=== PATIENT | male | born 1945 | race Caucasian/White ===

== ENCOUNTER 2019-12-01 17:03 | Inpatient (IN) ==
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
--- NOTE | 2019-12-01 17:37 | XRay Report ---
XR chest 1V portable CLINICAL HISTORY: fall trauma. Pain. COMPARISON STUDY: No previous studies for comparison. FINDINGS: The bones soft tissues and hemidiaphragms are normal. The cardiomediastinal silhouette is n ormal. The lungs are clear. The pulmonary vasculature is normal. IMPRESSION: Negative chest. ACT 112: Negative or not required by law. The above report was generated using voice recognition software. It may contain grammatical, syntax or spelling errors. Electronically signed by: Mauricio Forman M.D. 12/01/2019 5:36 PM
[2019-12-01 18:04] LABS: Basophils # (auto) 0.03 K/uL (0-0.2); Basophils % (auto) 0.2 %; Eosinophils # (auto) 0.04 K/uL (0-0.5); Eosinophils % (auto) 0.3 %; Hematocrit (blood only) 44.4 % (42-52); Hemoglobin 15.7 g/dL (14.0-18.0); Immature Granulocytes # (auto) 0.06 K/uL (0.00-0.02); Immature Granulocytes % (auto) 0.4 %; Lymphocytes # (auto) 2.46 K/uL (1.2-3.4); Lymphocytes % (auto) 16.6 %; Mean Corpuscular Hemoglobin 33.3 pg (25-34); Mean Corpuscular Hgb Conc 35.4 g/dL (32-36); Mean Corpuscular Volume 94.1 fL (80-100); Mean Platelet Volume 9.3 fL (7.4-10.4); Monocytes # (auto) 1.27 K/uL (0.11-0.59); Monocytes % (auto) 8.6 %; Neutrophils # (auto) 10.92 K/uL (1.4-6.5); Neutrophils % (auto) 73.9 %; Platelet Count 255 K/uL (130-400); RDW Coefficient of Variation 12.4 % (11.5-14.5); RDW Standard Deviation 42.2 fL (36.4-46.3); Red Blood Count 4.72 M/uL (4.7-6.1); White Blood Count 14.78 K/uL (4.8-10.8)
--- NOTE | 2019-12-01 18:04 | CT Scan Report ---
CT head/brain wo con CT DOSE: HISTORY: Trauma fall TECHNIQUE: Multiaxial CT images of the head were performed without the use of intravenous contrast. A dose lowering technique was utilized adhering to the principles of ALARA. Comparison: 09/26/2015 Findings: The paranasal sinuses and mastoid air cells are clear. Moderate chronic hydrocephalus.. Thi s is unchanged from the prior study again potentially is in part compensatory and related to age-rela genet atrophy. 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 No evidence for parenchymal hemorrhage. Impression: 1. Chronic and age-related change. 2. No acute process. ACT 112: Negative or not required by law. The above report was generated using voice recognition software. It may contain grammatical, syntax or spelling errors. Electronically signed by: Mauricio Forman M.D. 12/01/2019 6:02 PM
--- NOTE | 2019-12-01 18:11 | CT Scan Report ---
CT cervical spine wo con CT DOSE: 1040.95 mGy.cm HISTORY: Trauma. Pain. fall TECHNIQUE: Multiaxial CT images of the cervical spine were performed and reformatted in the sagittal and coronal plane without the use of contrast. A dose lowering technique was utilized adhering to th e principles of ALARA. COMPARISON: None. FINDINGS: No fractures. No subluxation. Prevertebral soft tissues and the C1-C2 interval are intact. No pneumothorax. Moderate generalized degenerative disc changes throughout. Straightening of the cerv ical curvature. IMPRESSION: No fractures within the cervical spine. Moderate degenerative disc change. Muscle spasm. ACT 112: Negative or not required by law. The above report was generated using voice recognition software. It may contain grammatical, syntax or spelling errors. Electronically signed by: Mauricio Forman M.D. 12/01/2019 6:10 PM
[2019-12-01 18:23] LABS: Albumin Level 3.8 gm/dl (3.4-5.0); BUN Creatinine Ratio 16.6 (10-20); Calcium 8.8 mg/dl (8.5-10.1); Creatinine Clr Calc Pharmacy 60.8 ml/min; Est GFR (African American) 84.7; Est GFR (Non-African American) 73.1; Potassium 3.4 mmol/L (3.5-5.1)
[2019-12-01 18:27] LABS: Acetaminophen < 2 ug/ml (10-30); Salicylate < 1.7 mg/dl (2.8-20)
[2019-12-01 18:34] LABS: Bilirubin,Total 0.8 mg/dl (0.2-1); Globulin 3.8 gm/dl (2.5-4.0); Thyroid Stimulating Hormone 1.42 uIu/ml (0.300-4.500); Total Protein 7.6 gm/dl (6.4-8.2)
[2019-12-01 18:59] LABS: Appearance Urine Clear (Clear); Bilirubin Urine Negative (Negative); Blood Urine Negative (Negative); Color Urine Dark Yellow; Glucose Urine UA Negative (Negative); Ketones Urine Trace (Negative); Leukocyte Esterase Urine Negative (Negative); Nitrite Urine Negative (Negative); Protein Urine Negative (Negative); Specific Gravity Urine 1.024 (1.000-1.030); Urobilinogen Urine Negative (Negative)
[2019-12-01 19:16] LABS: Amphetamines+Metham, Urine Neg (Neg); Barbiturates, Urine Neg (Neg); Benzodiazepine, Urine Neg (Neg); Cocaine, Urine Neg (Neg); MDMA (Ecstacy), Urine Neg (Neg); Methadone, Urine Neg (Neg); Opiate, Urine Neg (Neg); Phencyclidine, Urine Neg (Neg)
[2019-12-01] MEDS ORDERED: ACETAMINOPHEN 325 MG TAB PO PRN (22:12)
[2019-12-01] MEDS ORDERED: ONDANSETRON INJ 2 MG/ML 2 ML VIAL IV PRN (22:12)
[2019-12-01] MEDS ORDERED: POLYETHYLENE (MIRALAX) 17 GM PACK PO PRN (22:12)
[2019-12-01] MEDS ORDERED: INFLUENZA ADMINISTRATION CHARGE ONE (22:44)
[2019-12-01] MEDS ORDERED: INFLUENZA VACCINE HIGH DOSE 65+ 0.5 ML SYR IM ONE (22:44)
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
[2019-12-02 05:07] LABS: Basophils # (auto) 0.05 K/uL (0-0.2); Basophils % (auto) 0.4 %; Eosinophils % (auto) 0.8 %; Hematocrit (blood only) 41.5 % (42-52); Hemoglobin 14.3 g/dL (14.0-18.0); Immature Granulocytes # (auto) 0.05 K/uL (0.00-0.02); Immature Granulocytes % (auto) 0.4 %; Lymphocytes % (auto) 18.5 %; Mean Corpuscular Hemoglobin 32.4 pg (25-34); Mean Corpuscular Hgb Conc 34.5 g/dL (32-36); Mean Corpuscular Volume 94.1 fL (80-100); Mean Platelet Volume 9.3 fL (7.4-10.4); Monocytes # (auto) 1.45 K/uL (0.11-0.59); Monocytes % (auto) 11.2 %; Neutrophils # (auto) 8.95 K/uL (1.4-6.5); Neutrophils % (auto) 68.7 %; Platelet Count 214 K/uL (130-400); RDW Coefficient of Variation 12.5 % (11.5-14.5); RDW Standard Deviation 42.8 fL (36.4-46.3); Red Blood Count 4.41 M/uL (4.7-6.1)
[2019-12-02 05:38] LABS: BUN Creatinine Ratio 17.7 (10-20); Calcium 8.4 mg/dl (8.5-10.1); Creatinine Clr Calc Pharmacy 83.8 ml/min; Est GFR (African American) 106.8; Est GFR (Non-African American) 92.2; Potassium 3.6 mmol/L (3.5-5.1)
[2019-12-02] MEDS: DONEPEZIL HCL 5 MG TAB PO SCH (09:14)
[2019-12-02] MEDS: ATORVASTATIN 20 MG TAB PO SCH (09:14)
[2019-12-02] MEDS: ESCITALOPRAM OXALATE 20 MG TAB PO SCH (09:14)
--- NOTE | 2019-12-02 10:30 | Hospitalist Progress Note ---
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 Under care of neurosurgery at [place] MRI did not show any significant change compared with that of MRI 4 years back Remains stable DVT prophylaxis SCDs for now CODE STATUS Full Admission and Anticipated Discharge Date Admission Date: December 01, 2019 Subjective The patient was seen and examined in the medical floor Is a 74-year-old male with significant past medical history of postconcussion syndrome, dementia and major depression was admitted yesterday with frequent falls He complains to have fever last night without any associated symptoms of cough, problem with urine and her bowel habit Denies any other symptoms this morning Review of Systems Review of Systems: All systems reviewed and are unremarkable except noted below Gastrointestinal: + bloating; no nausea and no vomiting Physical Exam Physical Exam: Sitting at the edge of the bed without any acute symptoms Constitutional: well developed and well nourished; not ill appearing Eyes: PERRL, conjunctivae normal, anicteric sclerae ENMT: external ear and nose normal, oropharynx normal Neck: trachea midline, no thyromegaly Respiratory: normal respiratory effort; no respiratory distress Auscultation: lungs clear to auscultation bilaterally Cardiovascular: Rate/Rhythm: regular rate and regular rhythm; not tachycardic Heart Sounds: no murmur Gastrointestinal (Abdomen): Inspection/Auscultation: + abdomen distended and normal bowel sounds Percussion/Palpation: abdomen soft; abdomen nontender Musculoskeletal: No acute arthritis in any joints Neurologic: moves all extremities; no focal motor deficits Lymphatic: no cervical or axillary lymphadenopathy Results & Data Results & Data ([facility]) Vital Signs (Past 12 Hours) Vital Signs Temp Pulse Resp BP Pulse Ox 12/02/19 09:11 37.1 C 12/02/19 07:21 37.7 C H 63 18 132/85 96 12/01/19 23:47 37.1 C 70 20 123/84 97 Laboratory Results Short CBC 04/17/20 04/18/20 Range/Units 17:46 04:51 WBC 14.78 H 13.00 H (4.8-10.8) K/uL Hgb 15.7 14.3 (14.0-18.0) g/dL Hct 44.4 41.5 L (42-52) % Plt Count 255 214 (130-400) K/uL BMP 12/01/19 12/02/19 17:46 04:51 Sodium 138 136 Potassium 3.4 L 3.6 Chloride 107 108 H Carbon Dioxide 24 23 BUN 17 13 Creatinine 1.02 0.74 Glucose 149 H 114 H Calcium 8.8 8.4 L Liver Function 12/01/19 Range/Units 17:46 Total Bilirubin 0.8 (0.2-1) mg/dl AST 26 (15-37) U/L ALT 53 (12-78) U/L Alkaline Phosphatase 86 (45-117) U/L Albumin 3.8 (3.4-5.0) gm/dl Urine 12/01/19 Range/Units 18:50 Urine Color Dark Yellow Urine Appearance Clear (Clear) Urine pH 5.0 (4.5-7.5) Ur Specific [place] 1.024 (1.000-1.030) Urine Protein Negative (Negative) Urine Glucose (UA) Negative (Negative) Medications Administered Current Inpatient Medications Acetaminophen (Tylenol) 650 mg PO Q4H PRN PRN Reason: pain/fever Stop: 12/31/19 22:11 Atorvastatin Calcium (Lipitor) 20 mg PO DAILY [facility] Stop: 01/01/20 08:59 Last Admin: 12/02/19 09:14 Dose: 20 mg Documented by: Donepezil HCl (Aricept) 5 mg PO DAILY [facility] Stop: 01/01/20 08:59 Last Admin: 12/02/19 09:14 Dose: 5 mg Documented by: Escitalopram Oxalate (Lexapro Tab) 20 mg PO DAILY [facility] Stop: 01/01/20 08:59 Last Admin: 12/02/19 09:14 Dose: 20 mg Documented by: Ondansetron HCl (Zofran) 4 mg IV Q6H PRN PRN Reason: Nausea Stop: 12/31/19 22:11 Polyethylene Glycol (Miralax Powder Packet) 17 gm PO DAILY PRN PRN Reason: Constipation Stop: 12/31/19 22:11 (1) Fall Encounter type: initial encounter Qualified Code(s): W19.XXXA - Unspecified fall, initial encounter (2) Dementia Dementia behavioral disturbance: without behavioral disturbance Dementia type: unspecified type Qualified Code(s): F03.90 - Unspecified dementia without behavioral disturbance
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
--- NOTE | 2019-12-02 13:33 | Electrocardiogram Report ---
Test Reason : Blood Pressure : / mmHG Vent. Rate : 064 BPM Atrial Rate : 064 BPM P-R Int : 194 ms QRS Dur : 104 ms QT Int : 418 ms P-R-T Axes : 055 -17 051 degrees QTc Int : 431 ms Normal sinus rhythm Incomplete right bundle branch block Septal infarct , age undetermined Abnormal ECG No previous ECGs available Confirmed by Florentin Edwards ([id number]) on 12/02/2019 1:33:09 PM Referred By: REFERRED SELF Confirmed By:Florentin Edwards
[2019-12-03] MEDS: ATORVASTATIN 20 MG TAB PO SCH (09:28)
[2019-12-03] MEDS: ESCITALOPRAM OXALATE 20 MG TAB PO SCH (09:28)
[2019-12-03] MEDS: DONEPEZIL HCL 5 MG TAB PO SCH (09:29)
--- NOTE | 2019-12-03 11:25 | Hospitalist Progress Note ---
Date of Service December 03, 2019 Assessment & Plan (1) Fall: He was noted to be outside his home and was wondering about to get some food Lives alone Has been falling repeatedly recently without any significant injury or loss of consciousness He was brought into the hospital by the police Remains stable as of this morning PT and OT have been requested and social service consulted for possible placement (2) Dementia: Has history of dementia No acute delirium this morning Has mild depression on top of dementia Appreciate psychiatrist input and recommendation No suicidal and/or homicidal ideation Case management to evaluate for possible placement (3) HTN (hypertension): Seems to be controlled (4) Normal pressure hydrocephalus: Has history of normal pressure hydrocephalus Under care of neurosurgery at [place] MRI did not show any significant change compared with that of MRI 4 years back Remains stable DVT prophylaxis SCDs for now CODE STATUS Full Admission and Anticipated Discharge Date Admission Date: December 03, 2019 Subjective The patient was seen and examined in the medical floor Is a 74-year-old male with significant past medical history of postconcussion syndrome, dementia and major depression was admitted yesterday with frequent falls He complains to have fever last night without any associated symptoms of cough, problem with urine and her bowel habit Denies any other symptoms this morning 12/03/2019 The patient was seen and examined in medical floor He remains stable without any complaints He has been eating and drinking normally and ambulating in the room Review of Systems Review of Systems: All systems reviewed and are unremarkable except noted below Gastrointestinal: no bloating, no nausea and no vomiting Physical Exam Physical Exam: Sitting at the edge of the bed without any acute symptoms Constitutional: well developed and well nourished; not ill appearing Eyes: PERRL, conjunctivae normal, anicteric sclerae ENMT: external ear and nose normal, oropharynx normal Neck: trachea midline, no thyromegaly Respiratory: normal respiratory effort; no respiratory distress Auscultation: lungs clear to auscultation bilaterally Cardiovascular: Rate/Rhythm: regular rate and regular rhythm; not tachycardic Heart Sounds: no murmur Gastrointestinal (Abdomen): Inspection/Auscultation: + abdomen distended and normal bowel sounds Percussion/Palpation: abdomen soft; abdomen nontender Neurologic: moves all extremities; no focal motor deficits Lymphatic: no cervical or axillary lymphadenopathy Results & Data Results & Data ([facility]) Vital Signs (Past 12 Hours) Vital Signs Temp Pulse Resp BP Pulse Ox 04/19/20 07:05 36.9 C 65 18 136/80 96 12/02/19 23:32 36.8 C 54 L 16 136/84 93 Medications Administered Current Inpatient Medications Acetaminophen (Tylenol) 650 mg PO Q4H PRN PRN Reason: pain/fever Stop: 12/31/19 22:11 Atorvastatin Calcium (Lipitor) 20 mg PO DAILY [facility] Stop: 01/01/20 08:59 Last Admin: 12/03/19 09:28 Dose: 20 mg Documented by: Donepezil HCl (Aricept) 5 mg PO DAILY [facility] Stop: 01/01/20 08:59 Last Admin: 12/03/19 09:29 Dose: 5 mg Documented by: Escitalopram Oxalate (Lexapro Tab) 20 mg PO DAILY [facility] Stop: 01/01/20 08:59 Last Admin: 12/03/19 09:28 Dose: 20 mg Documented by: Ondansetron HCl (Zofran) 4 mg IV Q6H PRN PRN Reason: Nausea Stop: 12/31/19 22:11 Polyethylene Glycol (Miralax Powder Packet) 17 gm PO DAILY PRN PRN Reason: Constipation Stop: 12/31/19 22:11 (1) Fall Encounter type: initial encounter Qualified Code(s): W19.XXXA - Unspecified fall, initial encounter (2) Dementia Dementia behavioral disturbance: without behavioral disturbance Dementia type: unspecified type Qualified Code(s): F03.90 - Unspecified dementia without behavioral disturbance
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
== END 2019-12-03 13:07 | DRG 884 ==
LOC: 3E 17:03 → ED 17:03 → 3E 21:48

== ENCOUNTER 2021-06-17 13:57 | Inpatient (IN) ==
[2021-06-17] MEDS ORDERED: SODIUM CHLORIDE 0.9% 1000ML 1,000 ML IV ONE ×2 (14:08→14:10)
[2021-06-17] MEDS ORDERED: cefTRIAXone SODIUM 1,000 MG/50 ML BAG IV STA (14:08)
--- NOTE | 2021-06-17 14:13 | Emergency Department Note ---
Impression & Plan Sepsis, Pneumonia, Leukocytosis, Elevated lactic acid level ED Provider Note NAME: DOROTA JIMENEZ AGE: 75 SEX: M : 1945 ARRIVES VIA: Ambulance INFORMANT: Patient ED PROVIDER(S): Karthikeyan Cordova DO CHIEF COMPLAINT: cough and congestion HPI: Patient is a 75-year-old male with a past medical history of dementia, hypertension, alcohol abuse and NPH who presents to the ER for worsening confusion from [facility] as well as fevers cough and congestion. His symptoms started this past Wednesday. He denies any headache or change in vision. No chest pain or shortness of breath. He denies any belly pain or any urinary symptoms. History is fairly limited. Majority of history is obtained from EMS per their report. ROS: See above HPI for pertinent positives & negatives. A total of 10 systems reviewed and were otherwise negative. PAST MEDICAL HISTORY:See Below PAST SURGICAL HISTORY:See Below FAMILY HISTORY:See Below SOCIAL HISTORY:See Below HOME MEDICATIONS:See Below ALLERGIES:See Below VITALS:See Below PHYSICAL EXAMINATION: GENERAL: Sitting up in bed, alert, ill-appearing, disheveled with a persistent cough EYE EXAM: Normal conjunctiva with green purulent drainage on the left eye OROPHARYNX: no exudate, no erythema, lips, buccal mucosa, and tongue normal and mucous membranes are moist NECK: supple, no nuchal rigidity, no adenopathy, non-tender LUNGS: Clear to auscultation. Normal chest wall mechanics HEART: no murmurs, S1 normal and S2 normal ABDOMEN: abdomen soft, non-tender, normo-active bowel sounds, no masses, no rebound or guarding. UPPER EXTREMITIES: upper extremities are grossly normal. LOWER EXTREMITIES: No pitting edema. NEURO EXAM: Awake alert following commands, cranial nerves II-XII grossly intact, normal speech, no gross weakness of arms, no gross weakness of legs. MEDICAL DECISION MAKING: Patient is a 75-year-old male who presents the ER upper respiratory symptoms. IV was established blood work was obtained. Labs show leukocytosis 17,000. Lactate was elevated in the twos. No anemia. INR unremarkable. BMP with mild hypokalemia 3.4. LFTs bilirubin and troponin was negative. Pro-Jesus 0.26. Covid was negative. Chest x-ray with bilateral infiltrates. Patient was given IV fluids, azithromycin and Rocephin. Updated bedside. Discussed with hospitalist admitted for sepsis as he was febrile with an elevated lactate, leukocytosis for pneumonia. Triage Nursing notes reviewed. Limited review of prior medical records performed Vital Signs: reviewed and remarkable for fever Differential diagnosis: Differential diagnoses includes but is not limited to pneumonia, bronchitis, COPD/Asthma exacerbation, pneumothorax, pulmonary embolism, congestive heart failure, acute coronary syndrome ER treatment provided: See below Diagnostics interpreted by me: ECG: Sinus rhythm rate of 95 PVCs Inferior Q waves Septal Q waves QTC 417 Cardiac Monitoring: An order was placed for continuous cardiac monitoring. The monitor shows a rate of 92 with sinus rhythm. Laboratory studies: As stated above and show below. Imaging studies: Chest x-ray shows bilateral infiltrates Consultation(s): Discussed with hospitalist for further evaluation Procedures: none Critical Care: None Past Med/Surg History Social History Smoking Status: Unknown if ever smoked Tobacco Type: Cigars Hx Substance Use: No Preferred Language: Romansh Communication Ability: Effective Workers Compensation Analyst Required: No Beliefs That Will Affect Care: None marital status: Single Current Living Situation: Alone Feels Safe at Home: Yes Assistive Devices: Glasses Allergies Allergies Allergy/AdvReac Type Severity Reaction Status Date / Time No Known Allergies Allergy Verified 06/17/21 15:12 Home Meds Home Medications Medication Instructions Recorded Confirmed atorvastatin 20 mg tablet 20 mg PO QAM 12/01/19 06/17/21 escitalopram oxalate 20 mg tablet 20 mg PO QAM 12/01/19 06/17/21 (Lexapro) furosemide 20 mg tablet (Lasix) 20 mg PO QAM 12/01/19 06/17/21 carbidopa 25 mg-levodopa 100 mg 1 tab PO TIDM 06/17/21 06/17/21 tablet donepezil 10 mg tablet 10 mg PO QAM 06/17/21 06/17/21 guaifenesin 600 mg tablet, 600 mg PO Q12H PRN 06/17/21 06/17/21 extended release 12 hr (Mucus Relief ER) polyethylene glycol 3350 17 17 g PO Q3D PRN 06/17/21 06/17/21 gram/dose oral powder (Miralax) Results & Data (ED) Vital Signs Vital Signs - 24 hr 06/17/21 14:09 06/17/21 14:16 06/17/21 15:00 Temperature 38.0 C H Temperature Source Oral Pulse Rate 82 Pulse Rate [Right Finger] 74 Respiratory Rate 21 20 Respiratory Effort / Characteristics Non-Labored Respiratory Depth Normal Blood Pressure 140/87 Blood Pressure [Right Arm] 122/69 Blood Pressure Mean 104 Blood Pressure Mean [Right Arm] 86 Blood Pressure Position [Right Arm] Pulse Oximetry 93 93 Oxygen Delivery Method Room Air Room Air Nasal Cannula Oxygen Flow Rate 3 Sepsis Recent Fever Within 48 Hours Yes Sepsis New/Unexplained Change in Mental Status Yes Sepsis Action Taken by Nursing Physician Notified 06/17/21 15:04 06/17/21 16:00 06/17/21 16:12 Temperature Temperature Source Pulse Rate Pulse Rate [Right Finger] 82 Respiratory Rate 18 20 Respiratory Effort / Characteristics Respiratory Depth Normal Blood Pressure Blood Pressure [Right Arm] 118/74 117/97 Blood Pressure Mean Blood Pressure Mean [Right Arm] 88 103 Blood Pressure Position [Right Arm] Lying Pulse Oximetry 90 92 94 Oxygen Delivery Method Room Air Nasal Cannula Nasal Cannula Oxygen Flow Rate 3 3 Sepsis Recent Fever Within 48 Hours Sepsis New/Unexplained Change in Mental Status Sepsis Action Taken by Nursing 06/17/21 16:40 06/17/21 17:56 Temperature 37.9 C H Temperature Source Oral Pulse Rate Pulse Rate [Right Finger] 78 79 Respiratory Rate 20 20 Respiratory Effort / Characteristics Respiratory Depth Normal Normal Blood Pressure Blood Pressure [Right Arm] 121/62 144/72 H Blood Pressure Mean Blood Pressure Mean [Right Arm] 81 96 Blood Pressure Position [Right Arm] Lying Lying Pulse Oximetry 93 94 Oxygen Delivery Method Nasal Cannula Nasal Cannula Oxygen Flow Rate 3 3 Sepsis Recent Fever Within 48 Hours Sepsis New/Unexplained Change in Mental Status Sepsis Action Taken by Nursing Laboratory Data Result diagrams: 06/17/21 14:30 06/17/21 14:30 Lab Results 06/17/21 06/17/21 06/17/21 Range/Units 14:30 14:30 14:30 WBC 17.76 H (4.8-10.8) K/uL RBC 4.38 L (4.7-6.1) M/uL Hgb 14.3 (14.0-18.0) g/dL Hct 41.0 L (42-52) % MCV 93.6 (80-100) fL MCH 32.6 (25-34) pg MCHC 34.9 (32-36) g/dL RDW Std Deviation 43.2 (36.4-46.3) fL RDW Coeff of Vikas 12.6 (11.5-14.5) % Plt Count 351 (130-400) K/uL MPV 9.2 (7.4-10.4) fL Immature Gran % (Auto) 0.5 % Neut % (Auto) 75.6 % Lymph % (Auto) 11.0 % [place] % (Auto) 12.6 % Eos % (Auto) 0.1 % Baso % (Auto) 0.2 % Neut # (Auto) 13.43 H (1.4-6.5) K/uL Lymph # (Auto) 1.96 (1.2-3.4) K/uL [place] # (Auto) 2.23 H (0.11-0.59) K/uL Eos # (Auto) 0.02 (0-0.5) K/uL Baso # (Auto) 0.03 (0-0.2) K/uL Immature Gran # (Auto) 0.09 H (0.00-0.02) K/uL PT 10.5 (9.0-12.0) Seconds INR 1.0 (0.9-1.1) APTT 31.9 H (21.0-31.0) Seconds PTT Ratio 1.2 Sodium 135 L (136-145) mmol/L Potassium 3.4 L (3.5-5.1) mmol/L Chloride 103 (98-107) mmol/L Carbon Dioxide 27 (21-32) mmol/L Anion Gap 5.0 (3-11) BUN 18 (7-18) mg/dl Creatinine 0.88 (0.6-1.4) mg/dl Est Cr Clr Drug Dosing Not Reportable Est GFR ( Amer) 98.8 ml/min Est GFR (Non-Af Amer) 85.2 ml/min BUN/Creatinine Ratio 20.1 H (10-20) Glucose 139 H (70-99) mg/dl Lactate (0.4-2.0) mmol/L Calcium 9.2 (8.5-10.1) mg/dl Magnesium 2.2 (1.8-2.4) mg/dl Total Bilirubin 1.0 (0.2-1) mg/dl AST 32 (15-37) U/L ALT 17 (12-78) U/L Alkaline Phosphatase 125 H (45-117) U/L Troponin I < 0.015 (0-0.045) ng/ml Total Protein 7.4 (6.4-8.2) gm/dl Albumin 2.9 L (3.4-5.0) gm/dl Globulin 4.5 H (2.5-4.0) gm/dl Albumin/Globulin Ratio 0.6 L (0.9-2) Procalcitonin (0-0.5) ng/ml COVID-19 Eval Order SARS-CoV-2 (PCR) (Negative) 06/17/21 06/17/21 06/17/21 Range/Units 14:30 14:30 17:08 WBC (4.8-10.8) K/uL RBC (4.7-6.1) M/uL Hgb (14.0-18.0) g/dL Hct (42-52) % MCV (80-100) fL MCH (25-34) pg MCHC (32-36) g/dL RDW Std Deviation (36.4-46.3) fL RDW Coeff of Vikas (11.5-14.5) % Plt Count (130-400) K/uL MPV (7.4-10.4) fL Immature Gran % (Auto) % Neut % (Auto) % Lymph % (Auto) % [place] % (Auto) % Eos % (Auto) % Baso % (Auto) % Neut # (Auto) (1.4-6.5) K/uL Lymph # (Auto) (1.2-3.4) K/uL [place] # (Auto) (0.11-0.59) K/uL Eos # (Auto) (0-0.5) K/uL Baso # (Auto) (0-0.2) K/uL Immature Gran # (Auto) (0.00-0.02) K/uL PT (9.0-12.0) Seconds INR (0.9-1.1) APTT (21.0-31.0) Seconds PTT Ratio Sodium (136-145) mmol/L Potassium (3.5-5.1) mmol/L Chloride (98-107) mmol/L Carbon Dioxide (21-32) mmol/L Anion Gap (3-11) BUN (7-18) mg/dl Creatinine (0.6-1.4) mg/dl Est Cr Clr Drug Dosing Est GFR ( Amer) ml/min Est GFR (Non-Af Amer) ml/min BUN/Creatinine Ratio (10-20) Glucose (70-99) mg/dl Lactate 2.4 H* 1.0 (0.4-2.0) mmol/L Calcium (8.5-10.1) mg/dl Magnesium (1.8-2.4) mg/dl Total Bilirubin (0.2-1) mg/dl AST (15-37) U/L ALT (12-78) U/L Alkaline Phosphatase (45-117) U/L Troponin I (0-0.045) ng/ml Total Protein (6.4-8.2) gm/dl Albumin (3.4-5.0) gm/dl Globulin (2.5-4.0) gm/dl Albumin/Globulin Ratio (0.9-2) Procalcitonin 0.26 (0-0.5) ng/ml COVID-19 Eval Order SARS-CoV-2 (PCR) (Negative) 06/17/21 06/17/21 Range/Units Unknown Unknown WBC (4.8-10.8) K/uL RBC (4.7-6.1) M/uL Hgb (14.0-18.0) g/dL Hct (42-52) % MCV (80-100) fL MCH (25-34) pg MCHC (32-36) g/dL RDW Std Deviation (36.4-46.3) fL RDW Coeff of Vikas (11.5-14.5) % Plt Count (130-400) K/uL MPV (7.4-10.4) fL Immature Gran % (Auto) % Neut % (Auto) % Lymph % (Auto) % [place] % (Auto) % Eos % (Auto) % Baso % (Auto) % Neut # (Auto) (1.4-6.5) K/uL Lymph # (Auto) (1.2-3.4) K/uL [place] # (Auto) (0.11-0.59) K/uL Eos # (Auto) (0-0.5) K/uL Baso # (Auto) (0-0.2) K/uL Immature Gran # (Auto) (0.00-0.02) K/uL PT (9.0-12.0) Seconds INR (0.9-1.1) APTT (21.0-31.0) Seconds PTT Ratio Sodium (136-145) mmol/L Potassium (3.5-5.1) mmol/L Chloride (98-107) mmol/L Carbon Dioxide (21-32) mmol/L Anion Gap (3-11) BUN (7-18) mg/dl Creatinine (0.6-1.4) mg/dl Est Cr Clr Drug Dosing Est GFR ( Amer) ml/min Est GFR (Non-Af Amer) ml/min BUN/Creatinine Ratio (10-20) Glucose (70-99) mg/dl Lactate (0.4-2.0) mmol/L Calcium (8.5-10.1) mg/dl Magnesium (1.8-2.4) mg/dl Total Bilirubin (0.2-1) mg/dl AST (15-37) U/L ALT (12-78) U/L Alkaline Phosphatase (45-117) U/L Troponin I (0-0.045) ng/ml Total Protein (6.4-8.2) gm/dl Albumin (3.4-5.0) gm/dl Globulin (2.5-4.0) gm/dl Albumin/Globulin Ratio (0.9-2) Procalcitonin (0-0.5) ng/ml COVID-19 Eval Order Covid19 at [facility] SARS-CoV-2 (PCR) NEGATIVE (Negative) Administered Medications Discontinued Medications Acetaminophen (Acetaminophen 500 Mg Tab) 1,000 mg PO NOW STA Stop: 06/17/21 18:00 Last Admin: 06/17/21 18:15 Dose: 1,000 mg Documented by: [id number] Sodium Chloride (Nss 1000ml) 1,000 mls @ 999 mls/hr IV .Q1H1M ONE Stop: 06/17/21 15:08 Last Infusion: 06/17/21 18:05 Dose: 0 mls/hr Documented by: [id number] Admin: 06/17/21 15:21 Dose: 999 mls/hr Documented by: [id number] Ceftriaxone Sodium (Rocephin) 1,000 mg in 50 mls @ 100 mls/hr IV NOW STA Stop: 06/17/21 14:37 Last Infusion: 06/17/21 16:14 Dose: 0 mls/hr Documented by: [id number] Admin: 06/17/21 15:21 Dose: 100 mls/hr Documented by: [id number] Sodium Chloride (Nss 1000ml) 1,000 mls @ 999 mls/hr IV .Q1H1M ONE Stop: 06/17/21 15:10 Last Infusion: 06/17/21 18:06 Dose: 0 mls/hr Documented by: [id number] Admin: 06/17/21 16:17 Dose: 999 mls/hr Documented by: [id number] Azithromycin 500 mg/ Dextrose 255 mls @ 127.5 mls/hr IV NOW STA Stop: 06/17/21 18:11 Last Admin: 06/17/21 16:38 Dose: 127.5 mls/hr Documented by: [id number] Imaging Data Radiologist's Impression: Chest X-Ray 06/17/21 14:08 XR chest 1V portable HISTORY: 75 years-old Male SEPSIS acute sepsis COMPARISON: Chest radiograph 12/01/2019 TECHNIQUE: Portable AP view of the chest FINDINGS: Cardiac silhouette is mildly enlarged. Mild bibasilar opacities with hypoinflation. No pneumothorax, pleural effusion or overt pulmonary edema. Degenerative changes of the shoulders and spine. IMPRESSION: Hypoinflation with mild bibasilar densities suggestive of atelectasis versus pneumonitis. ACT 112: Negative or not required by law. The above report was generated using voice recognition software. It may contain grammatical, syntax or spelling errors. Electronically signed by: Dm Boyer M.D. 06/17/2021 3:04 PM Discharge Plan Visit Data Chief Complaint: Illness Stated Complaint: cough fever ED Provider: Karthikeyan Cordova Discharge Problem: Sepsis, Pneumonia, Leukocytosis, Elevated lactic acid level Forms Stand Alone Forms: My [facility] [employer] Prescriptions Prescriptions: No Action atorvastatin 20 mg Tablet 20 mg PO QAM RF: 0 furosemide [Lasix] 20 mg Tablet 20 mg PO QAM RF: 0 escitalopram oxalate [Lexapro] 20 mg Tablet 20 mg PO QAM RF: 0 carbidopa-levodopa 25-100 mg tablet 1 tab PO TIDM RF: 0 donepezil 10 mg tablet 10 mg PO QAM RF: 0 polyethylene glycol 3350 [Miralax] 17 gram/dose Powder 17 g PO Q3D PRN (Reason: Constipation) RF: 0 guaifenesin [Mucus Relief ER] 600 mg Tablet Extended Release 12hr 600 mg PO Q12H PRN (Reason: Congestion) RF: 0 Referrals Referrals: Pradeep Rodriguez DO [Primary Care Provider] - Discharge Problem: Sepsis Qualifiers: Sepsis type: sepsis due to unspecified organism Sepsis acute organ dysfunction status: unspecified Qualified Code(s): A41.9 - Sepsis, unspecified organism Pneumonia Qualifiers: Pneumonia type: due to unspecified organism Laterality: unspecified laterality Lung location: unspecified part of lung Qualified Code(s): J18.9 - Pneumonia, unspecified organism Leukocytosis Qualifiers: Leukocytosis type: unspecified Qualified Code(s): D72.829 - Elevated white blood cell count, unspecified
[2021-06-17 14:50] LABS: Basophils # (auto) 0.03 K/uL (0-0.2); Basophils % (auto) 0.2 %; Eosinophils # (auto) 0.02 K/uL (0-0.5); Eosinophils % (auto) 0.1 %; Hemoglobin 14.3 g/dL (14.0-18.0); Immature Granulocytes # (auto) 0.09 K/uL (0.00-0.02); Immature Granulocytes % (auto) 0.5 %; Lymphocytes # (auto) 1.96 K/uL (1.2-3.4); Mean Corpuscular Hemoglobin 32.6 pg (25-34); Mean Corpuscular Hgb Conc 34.9 g/dL (32-36); Mean Corpuscular Volume 93.6 fL (80-100); Mean Platelet Volume 9.2 fL (7.4-10.4); Monocytes # (auto) 2.23 K/uL (0.11-0.59); Monocytes % (auto) 12.6 %; Neutrophils # (auto) 13.43 K/uL (1.4-6.5); Neutrophils % (auto) 75.6 %; Platelet Count 351 K/uL (130-400); RDW Coefficient of Variation 12.6 % (11.5-14.5); RDW Standard Deviation 43.2 fL (36.4-46.3); Red Blood Count 4.38 M/uL (4.7-6.1); White Blood Count 17.76 K/uL (4.8-10.8)
--- NOTE | 2021-06-17 15:05 | XRay Report ---
XR chest 1V portable HISTORY: 75 years-old Male SEPSIS acute sepsis COMPARISON: Chest radiograph 12/01/2019 TECHNIQUE: Portable AP view of the chest FINDINGS: Cardiac silhouette is mildly enlarged. Mild bibasilar opacities with hypoinflation. No pneumothorax, pleural effusion or overt pulmonary edema. Degenerative changes of the shoulders and spine. IMPRESSION: Hypoinflation with mild bibasilar densities suggestive of atelectasis versus pneumonitis. ACT 112: Negative or not required by law. The above report was generated using voice recognition software. It may contain grammatical, syntax o r spelling errors. Electronically signed by: Dm Boyer M.D. 06/17/2021 3:04 PM
[2021-06-17 15:10] LABS: Partial Thromboplastin Ratio 1.2; Partial Thromboplastin Time 31.9 Seconds (21.0-31.0); Prothrombin Time 10.5 Seconds (9.0-12.0)
[2021-06-17 15:19] LABS: Alanine Aminotransferase 17 U/L (12-78); Albumin Level 2.9 gm/dl (3.4-5.0); Aspartate Aminotransferase 32 U/L (15-37); BUN Creatinine Ratio 20.1 (10-20); Blood Urea Nitrogen 18 mg/dl (7-18); Calcium 9.2 mg/dl (8.5-10.1); Carbon Dioxide 27 mmol/L (21-32); Chloride 103 mmol/L (98-107); Est GFR (African American) 98.8 ml/min; Est GFR (Non-African American) 85.2 ml/min; Glucose 139 mg/dl (70-99); Magnesium 2.2 mg/dl (1.8-2.4); Potassium 3.4 mmol/L (3.5-5.1); Sodium 135 mmol/L (136-145)
[2021-06-17 15:24] LABS: Albumin Globulin Ratio 0.6 (0.9-2); Alkaline Phosphatase 125 U/L (45-117); Globulin 4.5 gm/dl (2.5-4.0); Total Protein 7.4 gm/dl (6.4-8.2); Troponin I < 0.015 ng/ml (0-0.045)
[2021-06-17] MEDS ORDERED: AZITHROMYCIN 500 MG in DEXTROSE 5% 250 ML IV STA (16:12)
--- NOTE | 2021-06-17 16:38 | History & Physical Report ---
Date of Service June 17, 2021 Assessment & Plan (1) Sepsis: (2) Pneumonia: Plan: This is a 75yo M who resides at [facility] with a PMH of TBI, recent diagnosis of Parkinson's, HTN, h/o alcohol abuse, MDD and other medical problems listed below who presents with generalized weakness and cough x4 days found to have sepsis in setting of PNA. Cough and congestion x 3 days, saturating 92% on 3L NC (not on home O2) Febrile at 38 C, leukocytosis of 17.76, procal wnl, initial lactate 2.4 -> repeat 1.2 CXR with hypoinflation with mild bibasilar densities suggestive of atelectasis versus pneumonitis Started on rocephin and azithromycin in ED - plan to continue. Follow cultures Duonebs, flutter valve, Tessalon Perles PRN, Mucinex BID (3) Acute metabolic encephalopathy: Plan: In setting of acute infection, patient currently A&Ox1. Expect improvement with abx therapy, hydration (4) History of traumatic brain injury: Plan: History of severe TBI as a teen with some cognitive delay. Usually A&O x2 per sister. Continue donepezil (5) Bacterial conjunctivitis of left eye: Plan: Unclear how long this has been present, +photophobia Cleanse eyelids, Cipro drops (6) Parkinson's disease: Plan: Recent diagnosis within the past 6 months Fall precautions in setting of ambulatory dysfunction, PT/OT Continue carbidopa-levodopa (7) HTN (hypertension): Plan: Normotensive. Hold lasix while receiving fluid resuscitation (8) Depression: Plan: Continue Lexapro DVT Ppx: SQ Lovenox Code status: FULL code per discussion with sister Valerie for now - she plans to discuss further with other sister, nephew, discussed benefit of establishing a POA PCP: Tatiana Rodriguez Dispo: Admitted to PCU Patient seen in collaboration with Dr. Macdonald. Please see addendum. History of Present Illness Chief Complaint: confusion, cough, fevers Primary Care Provider: Pradeep Rodriguez, This is a 75yo M who resides at [facility] with a PMH of TBI, recent diagnosis of Parkinson's, HTN, h/o alcohol abuse, MDD and other medical problems listed below who presents with generalized weakness and cough x4 days. Noted by nursing to be congested with cough over the past few days. Oxygen saturation 93 to 95% on room air. Outpatient Covid test negative. Directed to ED for further evaluation of symptoms. Patient is currently alert and oriented to self only, which is different than baseline per discussion with Sister Valerie on the phone. Patient with history of TBI as a teen and as well as a diagnosis of Parkinson's disease within the past 6 months. Patient is normally oriented to person and place and knows his family members when he speaking on the phone. Is slow to answer questions and does seem to have less interest in decision making over the past few years, per sister. Unable to obtain ROS due to cognitive status. Unable to reach [facility] this evening. Allergies Allergy/AdvReac Type Severity Reaction Status Date / Time No Known Allergies Allergy Verified 06/17/21 15:12 Home Medications Medication Instructions Recorded Confirmed Type atorvastatin 20 mg tablet 20 mg PO QAM 12/01/19 06/17/21 History escitalopram oxalate 20 mg tablet 20 mg PO QAM 12/01/19 06/17/21 History (Lexapro) furosemide 20 mg tablet (Lasix) 20 mg PO QAM 12/01/19 06/17/21 History carbidopa 25 mg-levodopa 100 mg 1 tab PO TIDM 06/17/21 06/17/21 History tablet donepezil 10 mg tablet 10 mg PO QAM 06/17/21 06/17/21 History guaifenesin 600 mg tablet, 600 mg PO Q12H PRN 06/17/21 06/17/21 History extended release 12 hr (Mucus Relief ER) polyethylene glycol 3350 17 17 g PO Q3D PRN 06/17/21 06/17/21 History gram/dose oral powder (Miralax) Past Med/Surg History Medical History (Updated 06/17/21 @ 20:41 by Anamaria Schreiber PA-C) Depression History of traumatic brain injury HLD (hyperlipidemia) HTN (hypertension) Normal pressure hydrocephalus Parkinson's disease Surgical History Hx of colonoscopy Family History Other Diabetes Heart disease Social History (Updated 06/17/21 @ 20:32 by Anamaria Schreiber PA-C) Smoking Status: Unknown if ever smoked Tobacco Type: Cigars Hx Alcohol Use: No (former alcohol use ) Hx Substance Use: No Preferred Language: Surinamese Communication Ability: Impaired Communication Tools: Other Hadoop Software Engineer Required: Yes Beliefs That Will Affect Care: None marital status: Single Current Living Situation: [facility] Other Information That Helps Us Care for You: Yes Feels Safe at Home: Yes Safety Concerns: Feels Safe At This Time Assistive Devices: Walker Review of Systems Review of Systems: Unobtainable due to cognitive status Physical Exam Physical Exam: General Appearance: WD/WN, vitals as above, NAD, sitting up in bed, minimal verbal responses, alert Head: normocephalic, atraumatic Eyes: + injected sclera L eye with photophobia, purulent drainage noted. PERRL. ENT: external ear and nose normal, oropharynx normal Neck: normal visual inspection, trachea midline, no thyromegaly Respiratory: normal respiratory effort, diffuse rhonchi on exam, no wheeze or rales. No accessory muscle use Cardiovascular: regular rate, rhythm, no murmur, normal peripheral pulses, no BLE edema. Vessels: no JVD Chest: normal inspection of chest Abdomen/GI: normal bowel sounds, soft, nontender, no hepatosplenomegaly Extremities/Musculoskeletal: no cyanosis or clubbing, extremities motor strength 5/5 Neurologic: PERRL, EOMI, accommodation nl, no face palsy, no dysarthria, CN's II-XI intact bilaterally and moves all extremities Psychiatric: A+Ox person only, answered some questions Skin: no rashes, normal color, warm/dry Results & Data Results & Data ([facility]) Vital Signs (Past 12 Hours) Vital Signs Temp Pulse Pulse Resp BP BP Pulse Ox 06/17/21 16:12 94 06/17/21 16:00 82 20 117/97 92 06/17/21 15:04 18 118/74 90 06/17/21 15:00 74 20 122/69 93 06/17/21 14:09 38.0 C H 82 21 140/87 93 Laboratory Results Short CBC 06/17/21 Range/Units 14:30 WBC 17.76 H (4.8-10.8) K/uL Hgb 14.3 (14.0-18.0) g/dL Hct 41.0 L (42-52) % Plt Count 351 (130-400) K/uL BMP 06/17/21 14:30 Sodium 135 L Potassium 3.4 L Chloride 103 Carbon Dioxide 27 BUN 18 Creatinine 0.88 Glucose 139 H Calcium 9.2 Cardiac Enzymes 06/17/21 Range/Units 14:30 Troponin I < 0.015 (0-0.045) ng/ml Liver Function 06/17/21 Range/Units 14:30 Total Bilirubin 1.0 (0.2-1) mg/dl AST 32 (15-37) U/L ALT 17 (12-78) U/L Alkaline Phosphatase 125 H (45-117) U/L Albumin 2.9 L (3.4-5.0) gm/dl Diagnostic Findings Chest X-Ray 06/17/21 14:08 XR chest 1V portable HISTORY: 75 years-old Male SEPSIS acute sepsis COMPARISON: Chest radiograph 12/01/2019 TECHNIQUE: Portable AP view of the chest FINDINGS: Cardiac silhouette is mildly enlarged. Mild bibasilar opacities with hypoinflation. No pneumothorax, pleural effusion or overt pulmonary edema. Degenerative changes of the shoulders and spine. IMPRESSION: Hypoinflation with mild bibasilar densities suggestive of atelectasis versus pneumonitis. ACT 112: Negative or not required by law. The above report was generated using voice recognition software. It may contain grammatical, syntax or spelling errors. Electronically signed by: Dm Boyer M.D. 06/17/2021 3:04 PM Supervising Physician Co-Signing Physician Notes Pt seen and examined by me, care coordinated with Anamaria Schreiber PA-C, pls refer to her note above for further detail. Pt is a 75yo M who resides at [facility] w/ hx of TBI, recent diagnosis of Parkinson's, HTN, h/o alcohol abuse, MDD who presents with generalized weakness and cough x4 days. Oxygen saturation 93 to 95% on room air. Outpatient Covid test negative. Patient is currently alert and oriented to self only, which is different from baseline. Patient with history of TBI as a teen and as well as a diagnosis of Parkinson's disease within the past 6 months. Patient is normally oriented to person and place and knows his family members when he speaking on the phone. He is currently quite slow to answer questions but does not seem to be in discomfort and only complains of cough and congestion. Unable to obtain ROS due to cognitive status. Heart sounds seem reglar. Lung sounds: + diffuse rhonchi, no wheezing noted. Abdomen soft, non tender, nondistended. Pt is moving extremities. No significant LE edema noted. Skin is warm dry. L eye conjuctivitis + purulent drainage. Started on rocephin and azithro, will continue. Flutter valve, guaifenesin. obtain sputum cultx if possible. Closely monitor. Cesar Macdonald MD (1) Sepsis Sepsis acute organ dysfunction status: unspecified Sepsis type: sepsis due to unspecified organism Qualified Code(s): A41.9 - Sepsis, unspecified organism (2) Pneumonia Laterality: unspecified laterality Lung location: unspecified part of lung Pneumonia type: due to unspecified organism Qualified Code(s): J18.9 - Pneumonia, unspecified organism
--- NOTE | 2021-06-17 16:42 | Electrocardiogram Report ---
Test Reason : Blood Pressure : / mmHG Vent. Rate : 095 BPM Atrial Rate : 080 BPM P-R Int : 176 ms QRS Dur : 094 ms QT Int : 332 ms P-R-T Axes : 047 -25 051 degrees QTc Int : 417 ms Sinus rhythm with frequent Premature ventricular complexes Otherwise normal ECG When compared with ECG of 02-DEC-2019 06:43, Premature ventricular complexes are now Present Vent. rate has increased BY 31 BPM Confirmed by Jose Armando Phan ([id number]) on 06/17/2021 4:42:03 PM Referred By: REFERRED SELF Confirmed By:Cristofer Phan
[2021-06-17] MEDS ORDERED: ACETAMINOPHEN 500 MG TAB PO STA (17:59)
[2021-06-17] MEDS ORDERED: cefTRIAXone SODIUM 1,000 MG in DEXTROSE 5% 50 ML IV SCH (19:15)
[2021-06-17] MEDS ORDERED: BENZONATATE 100 MG CAPSULE PO PRN (20:43)
[2021-06-17] MEDS ORDERED: POLYETHYLENE (MIRALAX) 17 GM PACK PO PRN (20:43)
[2021-06-17] MEDS ORDERED: ACETAMINOPHEN 325 MG TAB PO PRN (20:43)
[2021-06-17] MEDS ORDERED: ONDANSETRON INJ 2 MG/ML 2 ML VIAL IV PRN (20:43)
[2021-06-17] MEDS ORDERED: guaiFENesin 600 MG TABCR PO PRN (20:54)
[2021-06-17] MEDS: ALBUT/IPRATROP 3MG/0.5MG NEB 3 ML VIAL NEB SCH (21:27)
[2021-06-17] MEDS ORDERED: cefTRIAXone SODIUM 2000MG/70ML D5W IV ONE (22:28)
[2021-06-17] MEDS: CIPROFLOXACIN HCL 0.3% OP SOLN 2.5 ML BTL OPL SCH (22:40)
[2021-06-17] MEDS: ENOXAPARIN INJ 40 MG/0.4 ML SYR SQ SCH (22:40)
[2021-06-17] MEDS: cefTRIAXone SODIUM 2,000 MG in DEXTROSE 5% 50 ML IV SCH (22:43)
[2021-06-18 06:02] LABS: Hematocrit (blood only) 37.8 % (42-52); Hemoglobin 12.8 g/dL (14.0-18.0); Mean Corpuscular Hemoglobin 31.9 pg (25-34); Mean Corpuscular Hgb Conc 33.9 g/dL (32-36); Mean Corpuscular Volume 94.3 fL (80-100); Mean Platelet Volume 9.2 fL (7.4-10.4); Platelet Count 293 K/uL (130-400); RDW Coefficient of Variation 12.8 % (11.5-14.5); RDW Standard Deviation 44.4 fL (36.4-46.3); Red Blood Count 4.01 M/uL (4.7-6.1); White Blood Count 13.64 K/uL (4.8-10.8)
[2021-06-18] MEDS: ALBUT/IPRATROP 3MG/0.5MG NEB 3 ML VIAL NEB SCH (06:21)
[2021-06-18 06:33] LABS: BUN Creatinine Ratio 24.9 (10-20); Calcium 8.4 mg/dl (8.5-10.1); Creatinine Clr Calc Pharmacy 109.8 ml/min; Est GFR (African American) 118.9 ml/min; Est GFR (Non-African American) 102.6 ml/min; Potassium 3.3 mmol/L (3.5-5.1)
[2021-06-18] MEDS: CIPROFLOXACIN HCL 0.3% OP SOLN 2.5 ML BTL OPL SCH ×4 (08:54→21:46)
[2021-06-18] MEDS: CARBIDOPA/LEVODOPA 25/100MG TAB PO SCH ×3 (08:54→18:08)
[2021-06-18] MEDS: DONEPEZIL HCL 10 MG TAB PO SCH (08:54)
[2021-06-18] MEDS: ATORVASTATIN 20 MG TAB PO SCH (08:54)
[2021-06-18] MEDS: ESCITALOPRAM OXALATE 20 MG TAB PO SCH (08:54)
[2021-06-18] MEDS ORDERED: ALBUT/IPRATROP 3MG/0.5MG NEB 3 ML VIAL NEB PRN (10:18)
[2021-06-18] MEDS ORDERED: POTASSIUM CHLORIDE CRTAB 20 MEQ TABCR PO STA (10:37)
[2021-06-18] MEDS: AZITHROMYCIN 500 MG in DEXTROSE 5% 250 ML IV SCH (19:27)
--- NOTE | 2021-06-18 21:40 | Hospitalist Progress Note ---
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 #. Sepsis: #. Pneumonia: Cough and congestion x 3 days, saturating 92% on 3L NC (not on home O2) YARDER PUNCHER. At presentation: Febrile at 38 C, leukocytosis of 17.76, procal wnl, initial lactate 2.4 -> repeat 1.2 CXR with hypoinflation with mild bibasilar densities suggestive of atelectasis versus pneumonitis Continue with Rocephin and azithromycin 06/17. Patient improving. Duonebs, flutter valve, Tessalon Perles PRN, Mucinex BID #. Acute metabolic encephalopathy: In setting of acute infection, patient currently A&Ox2 which appears to be his baseline Resolved #. 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 Usually A&O x2 per sister. Continue donepezil #. Bacterial conjunctivitis of left eye: Unclear how long this has been present, +photophobia Cleanse eyelids, Cipro drops #. Parkinson's disease: Recent diagnosis within the past 6 months Fall precautions in setting of ambulatory dysfunction, PT/OT Continue carbidopa-levodopa #. HTN (hypertension): Normotensive. Will resume Lasix tomorrow #. Depression: Continue Lexapro DVT Ppx: SQ Lovenox Code status: FULL code per discussion with sister Valerie for now - she plans to discuss further with other sister, nephew, discussed benefit of establishing a POA PCP: Tatiana Rodriguez Dispo: Admitted to PCU PT/OT to [facility], expect discharge in next 1 to 2 days. Admission and Anticipated Discharge Date Admission Date: June 17, 2021 Subjective Patient was lying in bed, AO x2, NAD, on 2 L nasal cannula oxygen. Per RN no acute events overnight. He looks tired. Per RN he has improved from yesterday. Patient reports cough. Cannot spit out sputum. Patient does not report any headache/dizziness/chest pain/other review of symptoms. Physical Exam Physical Exam: GENERAL: Alert and oriented x2. NAD, on 2L. HEENT: No pallor, no icterus. Pupils equal, round and reactive to light. Oral mucosa moist. NECK: No JVD, no neck masses. HEART: S1 and S2 heard. Regular rate and rhythm. No murmur, no gallop. RESPIRATORY SYSTEM: Normal AP diameter. No accessory muscle use. No wheezing, crackles diffuse and bilateral ABDOMEN: Soft, bowel sounds present, nontender, no distention. CENTRAL NERVOUS SYSTEM: Alert and oriented x3. No facial droop. Speech is clear. Obeys simple commands. Moves extremities. EXTREMITIES: No edema, no erythema seen. Results & Data Results & Data ([facility]) Vital Signs (Past 12 Hours) Vital Signs Temp Pulse Resp BP Pulse Ox 06/18/21 20:00 36.9 C 78 16 121/78 95 06/18/21 12:00 37.1 C 81 22 130/81 94 (1) Sepsis Sepsis acute organ dysfunction status: unspecified Sepsis type: sepsis due to unspecified organism Qualified Code(s): A41.9 - Sepsis, unspecified organism (2) Pneumonia Laterality: unspecified laterality Lung location: unspecified part of lung Pneumonia type: due to unspecified organism Qualified Code(s): J18.9 - Pneumonia, unspecified organism
[2021-06-18] MEDS: cefTRIAXone SODIUM 2,000 MG in DEXTROSE 5% 50 ML IV SCH (21:46)
[2021-06-18] MEDS: ENOXAPARIN INJ 40 MG/0.4 ML SYR SQ SCH (21:46)
[2021-06-19 06:29] LABS: Hematocrit (blood only) 37.1 % (42-52); Hemoglobin 12.6 g/dL (14.0-18.0); Mean Corpuscular Hemoglobin 32.4 pg (25-34); Mean Corpuscular Volume 95.4 fL (80-100); Mean Platelet Volume 9.1 fL (7.4-10.4); Platelet Count 333 K/uL (130-400); RDW Standard Deviation 45.1 fL (36.4-46.3); Red Blood Count 3.89 M/uL (4.7-6.1); White Blood Count 14.11 K/uL (4.8-10.8)
[2021-06-19 06:57] LABS: BUN Creatinine Ratio 25.3 (10-20); Calcium 8.6 mg/dl (8.5-10.1); Creatinine Clr Calc Pharmacy 93.2 ml/min; Est GFR (African American) 111.2 ml/min; Est GFR (Non-African American) 95.9 ml/min; Magnesium 2.3 mg/dl (1.8-2.4); Potassium 3.7 mmol/L (3.5-5.1)
[2021-06-19] MEDS: ESCITALOPRAM OXALATE 20 MG TAB PO SCH (08:38)
[2021-06-19] MEDS: CARBIDOPA/LEVODOPA 25/100MG TAB PO SCH ×3 (08:38→15:42)
[2021-06-19] MEDS: ATORVASTATIN 20 MG TAB PO SCH (08:38)
[2021-06-19] MEDS: DONEPEZIL HCL 10 MG TAB PO SCH (08:38)
[2021-06-19] MEDS: CIPROFLOXACIN HCL 0.3% OP SOLN 2.5 ML BTL OPL SCH ×4 (08:39→20:28)
--- NOTE | 2021-06-19 16:58 | Hospitalist Progress Note ---
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 #. Sepsis: #. Pneumonia: Cough and congestion x 3 days, saturating 92% on 3L NC (not on home O2) MANAGER PSYCHOLOGY. At presentation: Febrile at 38 C, leukocytosis of 17.76, procal wnl, initial lactate 2.4 -> repeat 1.2 CXR with hypoinflation with mild bibasilar densities suggestive of atelectasis versus pneumonitis Sepsis resolved. Continue with Rocephin and azithromycin 06/17. Patient improving. Duonebs, flutter valve, Tessalon Perles PRN, Mucinex BID #. Acute metabolic encephalopathy: In setting of acute infection, patient currently A&Ox2 which appears to be his baseline Resolved #. 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 Usually A&O x2 per sister. Continue donepezil #. Bacterial conjunctivitis of left eye: Unclear how long this has been present, +photophobia Improving Cleanse eyelids, Cipro drops #. Parkinson's disease: Recent diagnosis within the past 6 months Fall precautions in setting of ambulatory dysfunction, PT/OT Continue carbidopa-levodopa #. HTN (hypertension): Fairly under control, resume Lasix. #. Depression: Continue Lexapro DVT Ppx: SQ Lovenox Code status: FULL code per discussion with sister Valerie for now - she plans to discuss further with other sister, nephew, discussed benefit of establishing a POA PCP: Tatiana Rodriguez Dispo: Admitted to PCU PT/OT recommends discharge back to [facility]. expect discharge in next 1 to 2 days. Admission and Anticipated Discharge Date Admission Date: June 17, 2021 Subjective Patient was lying in bed, AO x2, NAD, on 2 L nasal cannula oxygen. No acute events overnight per patient. He looks somewhat better than yesterday. Patient reports cough. Patient was coughing at the bedside, wet in nature. patient does not report any headache/dizziness/chest pain/other review of symptoms. Patient is eating and moving bowels okay. Physical Exam Physical Exam: GENERAL: Alert and oriented x2. NAD, on 2L. Patient coughing at the bedside. HEENT: No pallor, no icterus. Pupils equal, round and reactive to light. Oral mucosa moist. NECK: No JVD, no neck masses. HEART: S1 and S2 heard. Regular rate and rhythm. No murmur, no gallop. RESPIRATORY SYSTEM: Normal AP diameter. No accessory muscle use. No wheezing, crackles diffuse and bilateral ABDOMEN: Soft, bowel sounds present, nontender, no distention. CENTRAL NERVOUS SYSTEM: No facial droop. Speech is clear. Obeys simple commands. Moves extremities. EXTREMITIES: No edema, no erythema seen. Results & Data Results & Data ([facility]) Vital Signs (Past 12 Hours) Vital Signs Temp Pulse Pulse Resp BP Pulse Ox 06/19/21 16:31 59 L 06/19/21 14:50 36.8 C 70 16 150/84 H 96 06/19/21 11:26 36.7 C 75 22 155/74 H 91 06/19/21 07:14 36.7 C 64 18 153/83 H 96 (1) Sepsis Sepsis acute organ dysfunction status: unspecified Sepsis type: sepsis due to unspecified organism Qualified Code(s): A41.9 - Sepsis, unspecified organism (2) Pneumonia Laterality: unspecified laterality Lung location: unspecified part of lung Pneumonia type: due to unspecified organism Qualified Code(s): J18.9 - Pneumonia, unspecified organism
[2021-06-19] MEDS: FUROSEMIDE 20 MG TAB PO SCH (17:34)
[2021-06-19] MEDS: AZITHROMYCIN 500 MG in DEXTROSE 5% 250 ML IV SCH (20:28)
[2021-06-19] MEDS: BENZONATATE 100 MG CAPSULE PO SCH (20:29)
[2021-06-19] MEDS: ENOXAPARIN INJ 40 MG/0.4 ML SYR SQ SCH (21:43)
[2021-06-19] MEDS: cefTRIAXone SODIUM 2,000 MG in DEXTROSE 5% 50 ML IV SCH (22:54)
[2021-06-20 07:12] LABS: Hematocrit (blood only) 37.7 % (42-52); Hemoglobin 13.1 g/dL (14.0-18.0); Mean Corpuscular Hemoglobin 31.9 pg (25-34); Mean Corpuscular Hgb Conc 34.7 g/dL (32-36); Mean Corpuscular Volume 91.7 fL (80-100); Mean Platelet Volume 9.1 fL (7.4-10.4); Platelet Count 376 K/uL (130-400); RDW Coefficient of Variation 12.7 % (11.5-14.5); RDW Standard Deviation 43.1 fL (36.4-46.3); Red Blood Count 4.11 M/uL (4.7-6.1); White Blood Count 10.69 K/uL (4.8-10.8)
[2021-06-20 07:43] LABS: BUN Creatinine Ratio 24.9 (10-20); Calcium 8.6 mg/dl (8.5-10.1); Creatinine Clr Calc Pharmacy 111.8 ml/min; Est GFR (African American) 119.8 ml/min; Est GFR (Non-African American) 103.4 ml/min; Potassium 3.4 mmol/L (3.5-5.1)
[2021-06-20] MEDS: BENZONATATE 100 MG CAPSULE PO SCH ×3 (08:25→20:54)
[2021-06-20] MEDS: CARBIDOPA/LEVODOPA 25/100MG TAB PO SCH ×3 (08:25→16:56)
[2021-06-20] MEDS: FUROSEMIDE 20 MG TAB PO SCH (08:25)
[2021-06-20] MEDS: ATORVASTATIN 20 MG TAB PO SCH (08:25)
[2021-06-20] MEDS: ESCITALOPRAM OXALATE 20 MG TAB PO SCH (08:25)
[2021-06-20] MEDS: DONEPEZIL HCL 10 MG TAB PO SCH (08:25)
[2021-06-20] MEDS: CIPROFLOXACIN HCL 0.3% OP SOLN 2.5 ML BTL OPL SCH ×4 (08:26→20:52)
[2021-06-20] MEDS ORDERED: POTASSIUM CHLORIDE CRTAB 20 MEQ TABCR PO STA (09:10)
--- NOTE | 2021-06-20 09:20 | XRay Report ---
XR chest 1V portable CLINICAL HISTORY: Follow-up possible pneumonia. Patient on antibiotics with continued fever.. 2020 COMPARISON STUDY: No previous studies for comparison. TECHNIQUE: 1 view of the chest FINDINGS: Single frontal view of the chest demonstrates the cardiomediastinal silhouette to be within normal li mits. Compared to the previous examination, there is an increased inspiratory effort with resolution of minimal bibasal atelectasis. No confluent alveolar opacities are identified. There is no evidence for pleural effusion. There is no evidence for vascular congestion. There is no acute osseous patholo gy. IMPRESSION: Compared to previous examination, there is a deeper inspiration with resolution of bibasi lar atelectasis. No confluent alveolar opacities are identified. Follow-up PA and lateral radiographs would be helpful for further evaluation. ACT 112: Negative or not required by law. Electronically signed by: Marc Soliz M.D. 06/20/2021 9:18 AM
[2021-06-20 10:35] LABS: Appearance Urine Clear (Clear); Bilirubin Urine Negative (Negative); Blood Urine Negative (Negative); Color Urine Yellow; Glucose Urine UA Negative (Negative); Ketones Urine 1+ (Negative); Leukocyte Esterase Urine Negative (Negative); Nitrite Urine Negative (Negative); Protein Urine Negative (Negative); Specific Gravity Urine 1.021 (1.000-1.030); Urobilinogen Urine Negative (Negative); pH Urine 6.5 (4.5-7.5)
--- NOTE | 2021-06-20 18:30 | Hospitalist Progress Note ---
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 #. Sepsis: #. Pneumonia: Cough and congestion x 3 days, saturating 92% on 3L NC (not on home O2) CONTENT STRATEGY LEAD. At presentation: Febrile at 38 C, leukocytosis of 17.76, procal wnl, initial lactate 2.4 -> repeat 1.2 CXR with hypoinflation with mild bibasilar densities suggestive of atelectasis versus pneumonitis Sepsis resolved. Continue with Rocephin and azithromycin 06/17. Patient improving. Duonebs, flutter valve, Tessalon Perles PRN, Mucinex BID Likely discharge tomorrow on oral antibiotics. #. Acute metabolic encephalopathy: In setting of acute infection, patient currently A&Ox2 which appears to be his baseline Resolved #. History of traumatic brain injury: History of severe TBI as a seen with some cognitive delay. Usually A&O x2 per sister. Continue donepezil #. Bacterial conjunctivitis of left eye: Unclear how long this has been present, +photophobia Improving Cleanse eyelids, Cipro drops #. Parkinson's disease: Recent diagnosis within the past 6 months Fall precautions in setting of ambulatory dysfunction, PT/OT Continue carbidopa-levodopa #. HTN (hypertension): Fairly under control, resume Lasix. #. Depression: Continue Lexapro DVT Ppx: SQ Lovenox Code status: FULL code per discussion with sister Valerie for now - she plans to discuss further with other sister, nephew, discussed benefit of establishing a POA PCP: Tatiana Rodriguez Dispo: Admitted to PCU PT/OT recommends discharge back to [facility]. expect discharge tomorrow if no new issues arises overnight . estimator project manager to help with discharge planning. Admission and Anticipated Discharge Date Admission Date: June 17, 2021 Subjective Patient was lying in bed, AO x2, NAD, on RA. No acute events overnight per patient. He reports feeling better and looks significantly better. Patient reports improving cough. No coughing noted at bedside today. Patient does not report any headache/dizziness/chest pain/other review of symptoms. Patient is eating and moving bowels okay. Physical Exam Physical Exam: GENERAL: Alert and oriented x2. NAD, on room air. No coughing at the bedside. HEENT: No pallor, no icterus. Pupils equal, round and reactive to light. Oral mucosa moist. NECK: No JVD, no neck masses. HEART: S1 and S2 heard. Regular rate and rhythm. No murmur, no gallop. RESPIRATORY SYSTEM: Normal AP diameter. No accessory muscle use. No wheezing, crackles diffuse and bilateralimproving ABDOMEN: Soft, bowel sounds present, nontender, no distention. CENTRAL NERVOUS SYSTEM: No facial droop. Speech is clear. Obeys simple commands. Moves extremities. EXTREMITIES: No edema, no erythema seen. Results & Data Results & Data ([facility]) Vital Signs (Past 12 Hours) Vital Signs Temp Pulse Pulse Resp BP BP Pulse Ox 06/20/21 16:30 63 06/20/21 15:58 37.3 C 67 16 166/87 H 92 06/20/21 12:20 37.0 C 64 16 132/84 91 06/20/21 08:33 36.8 C 64 20 133/80 92 06/20/21 07:24 57 L (1) Sepsis Sepsis acute organ dysfunction status: unspecified Sepsis type: sepsis due to unspecified organism Qualified Code(s): A41.9 - Sepsis, unspecified organism (2) Pneumonia Laterality: unspecified laterality Lung location: unspecified part of lung Pneumonia type: due to unspecified organism Qualified Code(s): J18.9 - Pneumonia, unspecified organism
[2021-06-20] MEDS: AZITHROMYCIN 500 MG in DEXTROSE 5% 250 ML IV SCH (20:51)
[2021-06-20] MEDS: ENOXAPARIN INJ 40 MG/0.4 ML SYR SQ SCH (20:52)
[2021-06-20] MEDS: cefTRIAXone SODIUM 2,000 MG in DEXTROSE 5% 50 ML IV SCH (22:55)
[2021-06-21 06:40] LABS: Hematocrit (blood only) 41.4 % (42-52); Hemoglobin 14.1 g/dL (14.0-18.0); Mean Corpuscular Hgb Conc 34.1 g/dL (32-36); Mean Corpuscular Volume 94.1 fL (80-100); Mean Platelet Volume 9.2 fL (7.4-10.4); Platelet Count 468 K/uL (130-400); RDW Coefficient of Variation 12.7 % (11.5-14.5); RDW Standard Deviation 43.2 fL (36.4-46.3); White Blood Count 14.03 K/uL (4.8-10.8)
[2021-06-21 07:25] LABS: BUN Creatinine Ratio 20.3 (10-20); Calcium 8.7 mg/dl (8.5-10.1); Creatinine Clr Calc Pharmacy 86.6 ml/min; Est GFR (African American) 107.9 ml/min; Est GFR (Non-African American) 93.1 ml/min; Magnesium 2.6 mg/dl (1.8-2.4); Potassium 4.2 mmol/L (3.5-5.1)
[2021-06-21] MEDS: BENZONATATE 100 MG CAPSULE PO SCH (08:15)
[2021-06-21] MEDS: ATORVASTATIN 20 MG TAB PO SCH (08:15)
[2021-06-21] MEDS: CIPROFLOXACIN HCL 0.3% OP SOLN 2.5 ML BTL OPL SCH ×4 (08:16→20:50)
[2021-06-21] MEDS: ESCITALOPRAM OXALATE 20 MG TAB PO SCH (08:16)
[2021-06-21] MEDS: CARBIDOPA/LEVODOPA 25/100MG TAB PO SCH ×3 (08:16→16:04)
[2021-06-21] MEDS: DONEPEZIL HCL 10 MG TAB PO SCH (08:16)
[2021-06-21] MEDS: FUROSEMIDE 20 MG TAB PO SCH (08:16)
[2021-06-21] MEDS ORDERED: PIPERACILL/TAZOBAC CONSULT ACTIVE PRN (08:28)
[2021-06-21] MEDS ORDERED: PIPERACILLIN/TAZOBACTAM 3.375 GM in DEXTROSE 5% 100 ML IV ONE (09:00)
--- NOTE | 2021-06-21 14:41 | Hospitalist Progress Note ---
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 #. Sepsis: #. Pneumonia: Cough and congestion x 3 days, saturating 92% on 3L NC (not on home O2) NEWSSTAND VENDOR. At presentation: Febrile at 38 C, leukocytosis of 17.76, procal wnl, initial lactate 2.4 -> repeat 1.2 Admitting CXR with hypoinflation with mild bibasilar densities suggestive of atelectasis versus pneumonitis Sepsis resolved. Patient is still febrile, WBC elevated today. Change Rocephin 06/17 to Zosyn 06/21 Continue with azithromycin 06/17. Procalcitonin not elevated, follow-up chest x-ray better. Duonebs, flutter valve, Tessalon Perles PRN, Mucinex BID Continue follow-up. #. Acute metabolic encephalopathy: In setting of acute infection, patient currently A&Ox2 which appears to be his baseline Resolved #. History of traumatic brain injury: History of severe TBI as a seen with some cognitive delay. Usually A&O x2 per sister. Continue donepezil #. Bacterial conjunctivitis of left eye: Unclear how long this has been present, +photophobia Improving Cleanse eyelids, Cipro drops #. Parkinson's disease: Recent diagnosis within the past 6 months Fall precautions in setting of ambulatory dysfunction, PT/OT Continue carbidopa-levodopa #. HTN (hypertension): Fairly under control, resume Lasix. #. Depression: Continue Lexapro DVT Ppx: SQ Lovenox Code status: FULL code per discussion with sister Valerie for now - she plans to discuss further with other sister, nephew, discussed benefit of establishing a POA PCP: Tatiana Rodriguez Dispo: Admitted to PCU PT/OT recommends discharge back to [facility]. expect discharge in 1-2 days . partnership marketing manager to help with discharge planning [[facility]] Admission and Anticipated Discharge Date Admission Date: June 17, 2021 Subjective Patient was lying in bed, AO x2, NAD, on RA. No acute events overnight per patient. He reports feeling same but looks not as better as yesterday to me. Patient reports improving cough. No coughing noted at bedside again today. Patient does not report any headache/dizziness/chest pain/other review of symptoms. Patient is eating and moving bowels okay. Physical Exam Physical Exam: GENERAL: Alert and oriented x2. NAD, on room air. No coughing at the bedside. HEENT: No pallor, no icterus. Pupils equal, round and reactive to light. Oral mucosa moist. NECK: No JVD, no neck masses. HEART: S1 and S2 heard. Regular rate and rhythm. No murmur, no gallop. RESPIRATORY SYSTEM: Normal AP diameter. No accessory muscle use. No wheezing, crackles diffuse and bilateralimproving ABDOMEN: Soft, bowel sounds present, nontender, no distention. CENTRAL NERVOUS SYSTEM: No facial droop. Speech is clear. Obeys simple commands. Moves extremities. EXTREMITIES: No edema, no erythema seen. Results & Data Results & Data ([facility]) Vital Signs (Past 12 Hours) Vital Signs Temp Pulse Pulse Resp BP Pulse Ox 06/21/21 11:48 36.7 C 63 20 156/79 H 93 06/21/21 08:30 57 L 06/21/21 05:54 37.2 C 61 14 151/68 H 93 06/21/21 04:07 36.9 C 60 17 120/76 95 (1) Sepsis Sepsis acute organ dysfunction status: unspecified Sepsis type: sepsis due to unspecified organism Qualified Code(s): A41.9 - Sepsis, unspecified organism (2) Pneumonia Laterality: unspecified laterality Lung location: unspecified part of lung Pneumonia type: due to unspecified organism Qualified Code(s): J18.9 - Pneumonia, unspecified organism
[2021-06-21] MEDS: PIPERACILLIN/TAZOBACTAM 3.375 GM in DEXTROSE 5% 100 ML IV SCH ×2 (16:03→23:57)
[2021-06-21] MEDS: AZITHROMYCIN 500 MG in DEXTROSE 5% 250 ML IV SCH (20:50)
[2021-06-21] MEDS: ENOXAPARIN INJ 40 MG/0.4 ML SYR SQ SCH (20:51)
[2021-06-22 06:56] LABS: Hemoglobin 13.7 g/dL (14.0-18.0); Mean Corpuscular Hgb Conc 34.3 g/dL (32-36); Mean Corpuscular Volume 93.5 fL (80-100); Platelet Count 461 K/uL (130-400); RDW Coefficient of Variation 12.7 % (11.5-14.5); Red Blood Count 4.28 M/uL (4.7-6.1); White Blood Count 11.38 K/uL (4.8-10.8)
[2021-06-22 07:25] LABS: Creatinine Clr Calc Pharmacy 102.5 ml/min; Est GFR (African American) 115.6 ml/min; Est GFR (Non-African American) 99.7 ml/min
[2021-06-22] MEDS: FUROSEMIDE 20 MG TAB PO SCH (08:44)
[2021-06-22] MEDS: CARBIDOPA/LEVODOPA 25/100MG TAB PO SCH ×3 (08:44→17:21)
[2021-06-22] MEDS: ATORVASTATIN 20 MG TAB PO SCH (08:45)
[2021-06-22] MEDS: ESCITALOPRAM OXALATE 20 MG TAB PO SCH (08:45)
[2021-06-22] MEDS: DONEPEZIL HCL 10 MG TAB PO SCH (08:45)
[2021-06-22] MEDS: CIPROFLOXACIN HCL 0.3% OP SOLN 2.5 ML BTL OPL SCH ×4 (08:45→21:04)
[2021-06-22] MEDS: PIPERACILLIN/TAZOBACTAM 3.375 GM in DEXTROSE 5% 100 ML IV SCH ×3 (08:51→23:50)
--- NOTE | 2021-06-22 14:50 | Hospitalist Progress Note ---
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 #. Sepsis: #. Pneumonia: Cough and congestion x 3 days, saturating 92% on 3L NC (not on home O2) CAR RETARDER OPERATOR. At presentation: Febrile at 38 C, leukocytosis of 17.76, procal wnl, initial lactate 2.4 -> repeat 1.2 Admitting CXR with hypoinflation with mild bibasilar densities suggestive of atelectasis versus pneumonitis Sepsis resolved. Patient is afebrile since yesterday, WBC trending down. Continue with Rocephin 06/17--> Zosyn 06/21 Continue with azithromycin 06/17. Procalcitonin not elevated, follow-up chest x-ray better. Duonebs, flutter valve, Tessalon Perles PRN, Mucinex BID Continue follow-up. #. Acute metabolic encephalopathy: In setting of acute infection, patient currently A&Ox2 which appears to be his baseline Resolved #. History of traumatic brain injury: History of severe TBI as a seen with some cognitive delay. Usually A&O x2 per sister. Continue donepezil #. Bacterial conjunctivitis of left eye: Unclear how long this has been present, +photophobia Improving Cleanse eyelids, Cipro drops #. Parkinson's disease: Recent diagnosis within the past 6 months Fall precautions in setting of ambulatory dysfunction, PT/OT Continue carbidopa-levodopa #. HTN (hypertension): Fairly under control, resume Lasix. #. Depression: Continue Lexapro DVT Ppx: SQ Lovenox Code status: FULL code per discussion with sister Valerie for now - she plans to discuss further with other sister, nephew, discussed benefit of establishing a POA PCP: Tatiana Rodriguez Dispo: Admitted to PCU PT/OT recommends discharge back to [facility]. expect discharge in 1-2 days . manager talent acquisition to help with discharge planning [[facility]]. Admission and Anticipated Discharge Date Admission Date: June 17, 2021 Subjective Patient was lying semiupright in bed, AO x2, NAD, on RA. Per RN, patient was found on floor overnight and did not hit his head; and no imaging was deemed necessary overnight by manager ccu per RN. Per patient, he does not remember falling overnight. Per RN he is eating and moving bowels okay. Patient reports improving cough, occasional wet appearing cough at bedside. Patient does not report any headache/dizziness/chest pain/other review of symptoms. Patient is eating and moving bowels okay. Physical Exam Physical Exam: GENERAL: Alert and oriented x2. NAD, on room air. Occasional wet coughing at the bedside. HEENT: No pallor, no icterus. Pupils equal, round and reactive to light. Oral mucosa moist. NECK: No JVD, no neck masses. HEART: S1 and S2 heard. Regular rate and rhythm. No murmur, no gallop. RESPIRATORY SYSTEM: Normal AP diameter. No accessory muscle use. No wheezing, crackles diffuse and bilateralimproving ABDOMEN: Soft, bowel sounds present, nontender, no distention. CENTRAL NERVOUS SYSTEM: No facial droop. Speech is clear. Obeys simple commands. Moves extremities. EXTREMITIES: No edema, no erythema seen. Results & Data Results & Data ([facility]) Vital Signs (Past 12 Hours) Vital Signs Temp Pulse Pulse Resp BP BP Pulse Ox 06/22/21 12:12 36.6 C 63 18 125/77 93 06/22/21 09:59 56 L 06/22/21 07:14 36.5 C 73 16 134/87 94 06/22/21 03:41 36.8 C 61 18 126/77 95 (1) Sepsis Sepsis acute organ dysfunction status: unspecified Sepsis type: sepsis due to unspecified organism Qualified Code(s): A41.9 - Sepsis, unspecified organism (2) Pneumonia Laterality: unspecified laterality Lung location: unspecified part of lung Pneumonia type: due to unspecified organism Qualified Code(s): J18.9 - Pneumonia, unspecified organism
[2021-06-22] MEDS: AZITHROMYCIN 500 MG in DEXTROSE 5% 250 ML IV SCH (21:04)
[2021-06-22] MEDS: ENOXAPARIN INJ 40 MG/0.4 ML SYR SQ SCH (21:05)
[2021-06-23 06:52] LABS: Hematocrit (blood only) 40.9 % (42-52); Hemoglobin 13.8 g/dL (14.0-18.0); Mean Corpuscular Hemoglobin 31.9 pg (25-34); Mean Corpuscular Hgb Conc 33.7 g/dL (32-36); Mean Corpuscular Volume 94.5 fL (80-100); Mean Platelet Volume 9.1 fL (7.4-10.4); Platelet Count 465 K/uL (130-400); RDW Coefficient of Variation 12.6 % (11.5-14.5); RDW Standard Deviation 43.6 fL (36.4-46.3); Red Blood Count 4.33 M/uL (4.7-6.1); White Blood Count 12.27 K/uL (4.8-10.8)
[2021-06-23 07:34] LABS: Est GFR (African American) 105.5 ml/min
[2021-06-23] MEDS: CARBIDOPA/LEVODOPA 25/100MG TAB PO SCH ×3 (08:06→16:25)
[2021-06-23] MEDS: ATORVASTATIN 20 MG TAB PO SCH (08:06)
[2021-06-23] MEDS: CIPROFLOXACIN HCL 0.3% OP SOLN 2.5 ML BTL OPL SCH ×4 (08:06→20:49)
[2021-06-23] MEDS: DONEPEZIL HCL 10 MG TAB PO SCH (08:07)
[2021-06-23] MEDS: FUROSEMIDE 20 MG TAB PO SCH (08:07)
[2021-06-23] MEDS: ESCITALOPRAM OXALATE 20 MG TAB PO SCH (08:07)
[2021-06-23] MEDS: PIPERACILLIN/TAZOBACTAM 3.375 GM in DEXTROSE 5% 100 ML IV SCH ×2 (08:17→16:25)
--- NOTE | 2021-06-23 11:57 | Hospitalist Progress Note ---
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 #. Sepsis: #. Pneumonia: Cough and congestion x 3 days, saturating 92% on 3L NC (not on home O2) STUDIO ENGINEER. At presentation: Febrile at 38 C, leukocytosis of 17.76, procal wnl, initial lactate 2.4 -> repeat 1.2 Admitting CXR with hypoinflation with mild bibasilar densities suggestive of atelectasis versus pneumonitis Sepsis resolved. Patient is afebrile since last today, WBC trending stable [WBC appears to be mildly elevated looking at past records). Continue with Rocephin 06/17--> Zosyn 06/21 --> changed to Augmentin tomorrow 06/24 Will complete course of azithromycin today 06/23. Repeat procalcitonin not elevated, follow-up chest x-ray has been better. Duonebs, flutter valve, Tessalon Perles PRN, Mucinex BID Continue follow-up. #. Acute metabolic encephalopathy: In setting of acute infection, patient currently A&Ox2 which appears to be his baseline Resolved #. History of traumatic brain injury: History of severe TBI as a seen with some cognitive delay. Usually A&O x2 per sister. Continue donepezil #. Bacterial conjunctivitis of left eye: Unclear how long this has been present, +photophobia Improving Cleanse eyelids, Cipro drops #. Parkinson's disease: Recent diagnosis within the past 6 months Fall precautions in setting of ambulatory dysfunction, PT/OT Continue carbidopa-levodopa #. HTN (hypertension): Fairly under control, resume Lasix. #. Depression: Continue Lexapro DVT Ppx: SQ Lovenox Code status: FULL code per discussion with sister Valerie for now - she plans to discuss further with other sister, nephew, discussed benefit of establishing a POA PCP: Tatiana Rodriguez Dispo: Admitted to PCU PT/OT recommends discharge back to [facility]. Medically stable t o discharge. aquatic centre manager to help with discharge planning [[facility]]. Admission and Anticipated Discharge Date Admission Date: June 17, 2021 Subjective Patient was lying in bed, AO x2, NAD, on RA. Patient looks better today, reports no acute events overnight. He reports eating and moving bowels okay. No cough noted at bedside exam today. Patient does not report any headache/dizziness/chest pain/other review of symptoms. Physical Exam Physical Exam: GENERAL: Alert and oriented x2. NAD, on room air. No cough noted at bedside exam. HEENT: No pallor, no icterus. Pupils equal, round and reactive to light. Oral mucosa moist. NECK: No JVD, no neck masses. HEART: S1 and S2 heard. Regular rate and rhythm. No murmur, no gallop. RESPIRATORY SYSTEM: Normal AP diameter. No accessory muscle use. No wheezing, crackles diffuse and bilateralimproving ABDOMEN: Soft, bowel sounds present, nontender, no distention. CENTRAL NERVOUS SYSTEM: No facial droop. Speech is clear. Obeys simple commands. Moves extremities. EXTREMITIES: No edema, no erythema seen. Results & Data Results & Data ([facility]) Vital Signs (Past 12 Hours) Vital Signs Temp Pulse Pulse Resp BP Pulse Ox 06/23/21 05:55 36.7 C 58 L 16 126/80 94 06/23/21 00:00 36.7 C 60 63 16 122/77 93 (1) Sepsis Sepsis acute organ dysfunction status: unspecified Sepsis type: sepsis due to unspecified organism Qualified Code(s): A41.9 - Sepsis, unspecified organism (2) Pneumonia Laterality: unspecified laterality Lung location: unspecified part of lung Pneumonia type: due to unspecified organism Qualified Code(s): J18.9 - Pneumonia, unspecified organism
[2021-06-23] MEDS: ENOXAPARIN INJ 40 MG/0.4 ML SYR SQ SCH (20:49)
[2021-06-24] MEDS: PIPERACILLIN/TAZOBACTAM 3.375 GM in DEXTROSE 5% 100 ML IV SCH ×2 (00:50→09:11)
[2021-06-24 06:32] LABS: Hematocrit (blood only) 40.9 % (42-52); Mean Corpuscular Hemoglobin 32.3 pg (25-34); Mean Corpuscular Hgb Conc 34.2 g/dL (32-36); Mean Corpuscular Volume 94.2 fL (80-100); Mean Platelet Volume 8.7 fL (7.4-10.4); Platelet Count 469 K/uL (130-400); RDW Coefficient of Variation 12.6 % (11.5-14.5); RDW Standard Deviation 43.4 fL (36.4-46.3); Red Blood Count 4.34 M/uL (4.7-6.1); White Blood Count 11.78 K/uL (4.8-10.8)
[2021-06-24 07:01] LABS: Creatinine Clr Calc Pharmacy 72.4 ml/min; Est GFR (African American) 100.2 ml/min; Est GFR (Non-African American) 86.4 ml/min
[2021-06-24] MEDS: CARBIDOPA/LEVODOPA 25/100MG TAB PO SCH ×3 (09:12→17:25)
[2021-06-24] MEDS: FUROSEMIDE 20 MG TAB PO SCH (09:12)
[2021-06-24] MEDS: CIPROFLOXACIN HCL 0.3% OP SOLN 2.5 ML BTL OPL SCH ×4 (09:12→20:37)
[2021-06-24] MEDS: ESCITALOPRAM OXALATE 20 MG TAB PO SCH (09:12)
[2021-06-24] MEDS: DONEPEZIL HCL 10 MG TAB PO SCH (09:12)
[2021-06-24] MEDS: ATORVASTATIN 20 MG TAB PO SCH (13:21)
--- NOTE | 2021-06-24 14:15 | Hospitalist Progress Note ---
Date of Service June 24, 2021 Assessment & Plan (1) Sepsis: (2) Pneumonia: (3) Acute metabolic encephalopathy: (4) Bacterial conjunctivitis of left eye: Plan: 75yo M who resides at [facility] with a PMH of TBI, recent diagnosis of Parkinson's, HTN, h/o alcohol abuse, MDD presented 06/17 with generalized weakness and cough x4 days [employer] found to have sepsis in setting of PNA. Sepsis: Pneumonia: Presented with cough and congestion x 3 days, saturating 92% on 3L NC (not on home O2) [employer]. At presentation: Febrile at 38 C, leukocytosis of 17.76, procal wnl, initial lactate 2.4 -> repeat 1.2 Admitting CXR with hypoinflation with mild bibasilar densities suggestive of atelectasis versus pneumonitis Sepsis resolved. Patient afebrile since 06/20 WBC 17.6 on admission -> 11.7 today Rocephin 06/17--> changed to Zosyn 06/21 due to ongoing fever--> Zosyn DC'd, Augmentin started 06/24 Completed course of a azithromycin on 06/23 Duonebs, flutter valve, Tessalon Perles PRN, Mucinex BID Acute metabolic encephalopathy: Resolved In setting of acute infection, patient currently A&Ox2 which appears to be his baseline History of traumatic brain injury: History of severe TBI as a seen with some cognitive delay. Usually A&O x2 per sister. Continue donepezil Bacterial conjunctivitis of left eye: Unclear how long this has been present, +photophobia Improving Cleanse eyelids, Cipro drops Parkinson's disease: Recent diagnosis within the past 6 months Fall precautions in setting of ambulatory dysfunction, PT/OT Continue carbidopa-levodopa HTN (hypertension): BP controlled, continue Lasix Depression: Continue Lexapro DVT Ppx: SQ Lovenox Code status: Per admitting provider - FULL code per discussion with sister Valerie for now - she plans to discuss further with other sister, nephew, discussed benefit of establishing a POA PCP: Tatiana Rodriguez Dispo: Medically stable for discharge. Discharge to [facility] vs. back to [facility], awaiting [facility] approval. Admission and Anticipated Discharge Date Admission Date: June 17, 2021 Supervising Physician Co-Signing Physician Notes This 75-year-old gentleman with mild dementia at baseline is being managed for pneumonia, will switch his IV antibiotic to Augmentin today. His WBC seems to be slightly elevated at baseline. He is doing better. He is medically stable for discharge at this point on oral ATB. Upon Exam : GENERAL: Alert and oriented x2. NAD, on room air. No cough noted at bedside exam. HEENT: No pallor, no icterus. Pupils equal, round and reactive to light. Oral mucosa moist. NECK: No JVD, no neck masses. HEART: S1 and S2 heard. Regular rate and rhythm. No murmur, no gallop. RESPIRATORY SYSTEM: Normal AP diameter. No accessory muscle use. No wheezing, crackles diffuse and bilateralimproving ABDOMEN: Soft, bowel sounds present, nontender, no distention. CENTRAL NERVOUS SYSTEM: No facial droop. Speech is clear. Obeys simple commands. Moves extremities. EXTREMITIES: No edema, no erythema seen. I have seen and examined the patient and have discussed the case with the provider above. I agree with the assessment and plan as stated. Subjective Patient seen and examined. Follow-up for pneumonia. Patient resting in bed, offers no complaints. Pleasant. Oriented to self and place only. Denies chest pain or shortness of breath. No abdominal pain or nausea. Physical Exam Constitutional: no acute distress Respiratory: normal respiratory effort, lungs clear to auscultation Cardiovascular: Rate/Rhythm: regular rate and regular rhythm Vessels: normal peripheral pulses Extremities: no edema Gastrointestinal (Abdomen): Percussion/Palpation: abdomen soft; abdomen nontender Skin: no rashes, warm and dry Neurologic: moves all extremities; no focal motor deficits Psychiatric: Orientation: alert, oriented to person, oriented to place and cooperative; + not oriented to time Insight: + limited insight Results & Data Results & Data ([facility]) Vital Signs (Past 12 Hours) Vital Signs Temp Pulse Resp BP Pulse Ox 06/24/21 07:57 36.2 C L 60 18 151/82 H 94 Laboratory Results Short CBC 06/24/21 Range/Units 06:14 WBC 11.78 H (4.8-10.8) K/uL Hgb 14.0 (14.0-18.0) g/dL Hct 40.9 L (42-52) % Plt Count 469 H (130-400) K/uL BMP 06/24/21 06:14 Creatinine 0.85 (1) Sepsis Sepsis acute organ dysfunction status: unspecified Sepsis type: sepsis due to unspecified organism Qualified Code(s): A41.9 - Sepsis, unspecified organism (2) Pneumonia Laterality: unspecified laterality Lung location: unspecified part of lung Pneumonia type: due to unspecified organism Qualified Code(s): J18.9 - Pneumonia, unspecified organism
[2021-06-24] MEDS: AMOXICILLIN/CLAVULANATE 875 MG TAB PO SCH (17:25)
[2021-06-24] MEDS: ENOXAPARIN INJ 40 MG/0.4 ML SYR SQ SCH (20:37)
[2021-06-25] MEDS: AMOXICILLIN/CLAVULANATE 875 MG TAB PO SCH ×2 (08:22→17:06)
[2021-06-25] MEDS: FUROSEMIDE 20 MG TAB PO SCH (08:22)
[2021-06-25] MEDS: ESCITALOPRAM OXALATE 20 MG TAB PO SCH (08:22)
[2021-06-25] MEDS: DONEPEZIL HCL 10 MG TAB PO SCH (08:22)
[2021-06-25] MEDS: CIPROFLOXACIN HCL 0.3% OP SOLN 2.5 ML BTL OPL SCH ×4 (08:22→20:16)
[2021-06-25] MEDS: ATORVASTATIN 20 MG TAB PO SCH (08:22)
[2021-06-25] MEDS: CARBIDOPA/LEVODOPA 25/100MG TAB PO SCH ×3 (08:22→17:06)
--- NOTE | 2021-06-25 14:40 | Hospitalist Progress Note ---
Date of Service June 25, 2021 Assessment & Plan (1) Sepsis: (2) Pneumonia: (3) Acute metabolic encephalopathy: Plan: 75yo M who resides at [facility] with a PMH of TBI, recent diagnosis of Parkinson's, HTN, h/o alcohol abuse, MDD presented 06/17 with generalized weakness and cough x4 days [employer] found to have sepsis in setting of PNA. Sepsis: Pneumonia: Presented with cough and congestion x 3 days, saturating 92% on 3L NC (not on home O2) [employer]. At presentation: Febrile at 38 C, leukocytosis of 17.76, procal wnl, initial lactate 2.4 -> repeat 1.2 Admitting CXR with hypoinflation with mild bibasilar densities suggestive of a telectasis versus pneumonitis Sepsis resolved. Patient afebrile since 06/20 WBC 17.6 on admission -> 11.7 on 06/24 Rocephin 06/17--> changed to Zosyn 06/21 due to ongoing fever--> Zosyn DC'd, Augmentin started 06/24 --> would recommend treating until 07/01 Completed course of a azithromycin on 06/23 Duonebs, flutter valve, Tessalon Perles PRN, Mucinex BID Acute metabolic encephalopathy: Resolved In setting of acute infection, patient currently A&Ox2 which appears to be his baseline History of traumatic brain injury: History of severe TBI as a seen with some cognitive delay. Usually A&O x2 per sister. Continue donepezil Bacterial conjunctivitis of left eye: Unclear how long this has been present, +photophobia Improving Cleanse eyelids, Cipro drops Parkinson's disease: Recent diagnosis within the past 6 months Fall precautions in setting of ambulatory dysfunction, PT/OT Continue carbidopa-levodopa HTN (hypertension): BP controlled, continue Lasix Depression: Continue Lexapro DVT Ppx: SQ Lovenox Code status: Per admitting provider - FULL code per discussion with sister Valerie for now - she plans to discuss further with other sister, nephew, discussed benefit of establishing a POA PCP: Tatiana Rodriguez Dispo: Medically stable for discharge. Discharge to [facility] vs. back to [facility], awaiting [facility] approval. Admission and Anticipated Discharge Date Admission Date: June 17, 2021 Supervising Physician Co-Signing Physician Notes Patient seen and examined by me, care coordinated with KEN Renner, please refer to her note above for further detail. Physical exam edited by me in the note. Overall patient is doing well, switched to p.o. antibiotics, plan for discharge to rehab or [facility]. Cesar Macdonald MD Subjective Patient seen in follow-up of pneumonia Currently sitting up in bed, no acute distress, eating Overall says he is feeling well he is not speaking in full sentences, but has no complaints Specifically no chest pain or shortness of breath or abdominal pain Review of Systems Review of Systems: All systems reviewed & are unremarkable except as noted in Subjective Physical Exam Physical Exam: GENERAL: Alert and oriented x2. NAD, on room air. No cough noted at bedside exam. HEENT: No pallor, no icterus. Pupils equal, round and reactive to light. Oral mucosa moist. NECK: No JVD, no neck masses. HEART: S1 and S2 heard. Regular rate and rhythm. No murmur, no gallop. RESPIRATORY SYSTEM: Normal AP diameter. No accessory muscle use. No wheezing, + mild rhonchi b/l ABDOMEN: Soft, bowel sounds present, nontender, no distention. CENTRAL NERVOUS SYSTEM: No facial droop. Speech is clear. Obeys simple commands. Moves extremities. EXTREMITIES: No edema, no erythema seen. Results & Data Results & Data ([facility]) Vital Signs (Past 12 Hours) Vital Signs Temp Pulse Resp BP Pulse Ox 06/25/21 07:10 36.6 C 65 16 152/95 H 91 Medications Administered Current Inpatient Medications Acetaminophen (Acetaminophen 325 Mg Tab) 650 mg PO Q4H PRN PRN Reason: Pain or Fever Stop: 07/17/21 20:42 Last Admin: 06/19/21 22:57 Dose: 650 mg Documented by: Albuterol (Albut/Ipratrop 3mg/0.5mg Neb 3 Ml Vial) 3 ml NEB QIDR PRN PRN Reason: Shortness Of Breath Or Wheezing Stop: 07/17/21 20:42 Amoxicillin/Clavulanate Potassium (Amoxicillin/Clavulanate 875 Mg Tab) 1 tab PO BIDM [facility]; Protocol Stop: 06/28/21 16:59 Last Admin: 06/25/21 08:22 Dose: 1 tab Documented by: Atorvastatin Calcium (Atorvastatin 20 Mg Tab) 20 mg PO QAM [facility] Stop: 07/18/21 08:59 Last Admin: 06/25/21 08:22 Dose: 20 mg Documented by: Benzonatate (Benzonatate 100 Mg Capsule) 100 mg PO TID PRN PRN Reason: Cough Stop: 07/17/21 20:42 Last Admin: 06/22/21 08:44 Dose: 100 mg Documented by: Carbidopa/Levodopa (Carbidopa/Levodopa 25/100mg Tab) 1 tab PO TIDM SERGEI Stop: 07/18/21 07:59 Last Admin: 06/25/21 13:43 Dose: 1 tab Documented by: Ciprofloxacin (Ciprofloxacin Hcl 0.3% Op Soln 2.5 Ml Btl) 2 drops OPL QID [facility] Stop: 06/27/21 21:59 Last Admin: 06/25/21 13:43 Dose: 2 drops Documented by: Donepezil HCl (Donepezil Hcl 10 Mg Tab) 10 mg PO QAM [facility] Stop: 07/18/21 08:59 Last Admin: 06/25/21 08:22 Dose: 10 mg Documented by: Enoxaparin Sodium (Enoxaparin Inj 40 Mg/0.4 Ml Syr) 40 mg SQ Q24H [facility] Stop: 07/17/21 20:59 Last Admin: 06/24/21 20:37 Dose: 40 mg Documented by: Escitalopram Oxalate (Escitalopram Oxalate 20 Mg Tab) 20 mg PO QAM [facility] Stop: 07/18/21 08:59 Last Admin: 06/25/21 08:22 Dose: 20 mg Documented by: Furosemide (Furosemide 20 Mg Tab) 20 mg PO QAM [facility] Stop: 07/19/21 16:59 Last Admin: 06/25/21 08:22 Dose: 20 mg Documented by: Guaifenesin (Guaifenesin 600 Mg Tabcr) 600 mg PO Q12H PRN PRN Reason: Congestion Stop: 07/17/21 20:53 Polyethylene Glycol (Polyethylene (Miralax) 17 Gm Pack) 17 gm PO DAILY PRN PRN Reason: Constipation Stop: 07/17/21 20:42 (1) Sepsis Sepsis acute organ dysfunction status: unspecified Sepsis type: sepsis due to unspecified organism Qualified Code(s): A41.9 - Sepsis, unspecified organism (2) Pneumonia Laterality: unspecified laterality Lung location: unspecified part of lung Pneumonia type: due to unspecified organism Qualified Code(s): J18.9 - Pneumonia, unspecified organism
[2021-06-25] MEDS: ENOXAPARIN INJ 40 MG/0.4 ML SYR SQ SCH (20:16)
[2021-06-26 08:58] LABS: Creatinine Clr Calc Pharmacy 76.9 ml/min; Est GFR (African American) 102.7 ml/min; Est GFR (Non-African American) 88.6 ml/min
[2021-06-26] MEDS: AMOXICILLIN/CLAVULANATE 875 MG TAB PO SCH ×2 (09:24→17:57)
[2021-06-26] MEDS: FUROSEMIDE 20 MG TAB PO SCH (09:25)
[2021-06-26] MEDS: DONEPEZIL HCL 10 MG TAB PO SCH (09:25)
[2021-06-26] MEDS: ESCITALOPRAM OXALATE 20 MG TAB PO SCH (09:25)
[2021-06-26] MEDS: ATORVASTATIN 20 MG TAB PO SCH (09:25)
[2021-06-26] MEDS: CIPROFLOXACIN HCL 0.3% OP SOLN 2.5 ML BTL OPL SCH ×4 (09:25→21:12)
[2021-06-26] MEDS: CARBIDOPA/LEVODOPA 25/100MG TAB PO SCH ×3 (09:25→17:57)
--- NOTE | 2021-06-26 14:37 | Hospitalist Progress Note ---
Date of Service June 26, 2021 Assessment & Plan (1) Sepsis: (2) Pneumonia: (3) Acute metabolic encephalopathy: Plan: This is a 75yo M who resides at [facility] with a PMH of TBI, recent diagnosis of Parkinson's, HTN, h/o alcohol abuse, MDD presented 06/17 with generalized weakness and cough x4 days [employer] found to have sepsis in setting of PNA. Sepsis: Pneumonia: Presented with cough and congestion x 3 days, saturating 92% on 3L NC (not on home O2) [employer]. At presentation: Febrile at 38 C, leukocytosis of 17.76, procal wnl, initial lactate 2.4 -> repeat 1.2 Admitting CXR with hypoinflation with mild bibasilar densities suggestive of atelectasis versus pneumonitis Sepsis resolved Patient afebrile since 06/20 WBC 17.6 on admission -> 11.7 on 06/24 Rocephin 06/17--> changed to Zosyn 06/21 due to ongoing fever--> Zosyn DC'd, Au gmentin started 06/24 --> would recommend treating until 07/01 Duonebs, flutter valve, Tessalon Perles PRN, Mucinex BID Acute metabolic encephalopathy: Resolved In setting of acute infection, patient currently A&Ox2 which appears to be his baseline History of traumatic brain injury: History of severe TBI as a seen with some cognitive delay. Usually A&O x2 per sister. Continue donepezil Bacterial conjunctivitis of left eye: Unclear how long this has been present, +photophobia Improving Cleanse eyelids, Cipro drops Parkinson's disease: Recent diagnosis within the past 6 months Fall precautions in setting of ambulatory dysfunction, PT/OT Continue carbidopa-levodopa HTN (hypertension): BP controlled, continue Lasix Depression: Continue Lexapro DVT Ppx: SQ Lovenox Code status: Per admitting provider - FULL code per discussion with sister Valerie for now - she plans to discuss further with other sister, nephew, discussed benefit of establishing a POA PCP: Tatiana Rodriguez Dispo: Medically stable for discharge. Discharge to [facility] vs. back to [facility], awaiting [facility] approval. Admission and Anticipated Discharge Date Admission Date: June 17, 2021 Supervising Physician Co-Signing Physician Notes Patient seen and examined by me, care coordinated with Anamaria Schreiber PA-C, please refer to her note above for further detail. Pt is laying in bed, breathing comfortably on RA however coughing. No flutter valve seen at the bedside. Cont. PO Abx, re-order flutter valve and spirometer. Overall patient is doing well, has no complaints. Plan to DC tomorrow. Cesar Macdonald MD Subjective Patient seen in follow-up of pneumonia. Seen in bedside chair, feeling well. No changes overnight. A&Ox2. Eating breakfast without issue. No fever, chills, CP, SOB or abdominal pain. Large bowel movement this morning. Review of Systems Review of Systems: At least ten systems reviewed and negative except as noted in the HPI. Physical Exam Physical Exam: Gen: WD/WN, NAD, sitting in bedside chair, A&Ox2 HEENT: Normocephalic, atraumatic, conjunctivae moist, sclerae anicteric, mucous membranes moist Lung: Clear to Auscultation bilaterally, no wheezes/rales/rhonchi Heart: Regular rate, regular rhythm, no murmurs, rubs, or gallops Abdomen: Soft, NT, ND +BS x 4 Extremities: no edema Skin: Warm, no rash Results & Data Results & Data ([facility]) Vital Signs (Past 12 Hours) Vital Signs Temp Pulse Resp BP Pulse Ox 06/26/21 07:04 36.7 C 61 18 120/81 92 Laboratory Results [facility] 06/26/21 07:56 Creatinine 0.80 Diagnostic Findings Chest X-Ray 06/17/21 14:08 XR chest 1V portable HISTORY: 75 years-old Male SEPSIS acute sepsis COMPARISON: Chest radiograph 12/01/2019 TECHNIQUE: Portable AP view of the chest FINDINGS: Cardiac silhouette is mildly enlarged. Mild bibasilar opacities with hypoinflation. No pneumothorax, pleural effusion or overt pulmonary edema. Degenerative changes of the shoulders and spine. IMPRESSION: Hypoinflation with mild bibasilar densities suggestive of atelectasis versus pneumonitis. ACT 112: Negative or not required by law. The above report was generated using voice recognition software. It may contain grammatical, syntax or spelling errors. Electronically signed by: Dm Boyer M.D. 06/17/2021 3:04 PM Chest X-Ray 06/20/21 07:27 XR chest 1V portable CLINICAL HISTORY: Follow-up possible pneumonia. Patient on antibiotics with continued fever.. 06/17/2021 COMPARISON STUDY: No previous studies for comparison. TECHNIQUE: 1 view of the chest FINDINGS: Single frontal view of the chest demonstrates the cardiomediastinal silhouette to be within normal limits. Compared to the previous examination, there is an increased inspiratory effort with resolution of minimal bibasal atelectasis. No confluent alveolar opacities are identified. There is no evidence for pleural effusion. There is no evidence for vascular congestion. There is no acute osseou s pathology. IMPRESSION: Compared to previous examination, there is a deeper inspiration with resolution of bibasilar atelectasis. No confluent alveolar opacities are identified. Follow-up PA and lateral radiographs would be helpful for further evaluation. ACT 112: Negative or not required by law. Electronically signed by: Marc Soliz M.D. 06/20/2021 9:18 AM (1) Sepsis Sepsis acute organ dysfunction status: unspecified Sepsis type: sepsis due to unspecified organism Qualified Code(s): A41.9 - Sepsis, unspecified organism (2) Pneumonia Laterality: unspecified laterality Lung location: unspecified part of lung Pneumonia type: due to unspecified organism Qualified Code(s): J18.9 - Pneumonia, unspecified organism
[2021-06-26] MEDS: ENOXAPARIN INJ 40 MG/0.4 ML SYR SQ SCH (21:12)
[2021-06-27] MEDS: ATORVASTATIN 20 MG TAB PO SCH (08:52)
[2021-06-27] MEDS: CARBIDOPA/LEVODOPA 25/100MG TAB PO SCH ×2 (08:52→12:00)
[2021-06-27] MEDS: AMOXICILLIN/CLAVULANATE 875 MG TAB PO SCH (08:52)
[2021-06-27] MEDS: CIPROFLOXACIN HCL 0.3% OP SOLN 2.5 ML BTL OPL SCH (08:53)
[2021-06-27] MEDS: DONEPEZIL HCL 10 MG TAB PO SCH (08:53)
[2021-06-27] MEDS: FUROSEMIDE 20 MG TAB PO SCH (08:53)
[2021-06-27] MEDS: ESCITALOPRAM OXALATE 20 MG TAB PO SCH (08:53)
--- NOTE | 2021-06-27 11:58 | Discharge Summary ---
Date of Service June 27, 2021 Admission HPI Per Admitting Provider This is a 75yo M who resides at [facility] with a PMH of TBI, recent diagnosis of Parkinson's, HTN, h/o alcohol abuse, MDD and other medical problems listed below who presents with generalized weakness and cough x4 days. Noted by nursing to be congested with cough over the past few days. Oxygen saturation 93 to 95% on room air. Outpatient Covid test negative. Directed to ED for further evaluation of symptoms. Patient is currently alert and oriented to self only, which is different than baseline per discussion with Sister Valerie on the phone. Patient with history of TBI as a teen and as well as a diagnosis of Parkinson's disease within the past 6 months. Patient is normally oriented to person and place and knows his family members when he speaking on the phone. Is slow to answer questions and does seem to have less interest in decision making over the past few years, per sister. Unable to obtain ROS due to cognitive status. Unable to reach [facility] this evening. Admission Exam Per Admitting Provider General Appearance:WD/WN, vitals as above, NAD, sitting up in bed, minimal verbal responses, alert Head: normocephalic, atraumatic Eyes:+ injected sclera L eye with photophobia, purulent drainage noted. PERRL. ENT: external ear and nose normal, oropharynx normal Neck: normal visual inspection, trachea midline, no thyromegaly Respiratory:normal respiratory effort, diffuse rhonchi on exam, no wheeze or rales. No accessory muscle use Cardiovascular: regular rate, rhythm, no murmur, normal peripheral pulses, no BLE edema. Vessels: no JVD Chest: normal inspection of chest Abdomen/GI: normal bowel sounds, soft, nontender, no hepatosplenomegaly Extremities/Musculoskeletal: no cyanosis or clubbing, extremities motor strength 5/5 Neurologic: PERRL, EOMI, accommodation nl, no face palsy, no dysarthria, CN's II-XI intact bilaterally and moves all extremities Psychiatric:A+Ox person only, answered some questions Skin: no rashes, normal color, warm/dry Principal Diagnosis sepsis pneumonia Discharge Exam Gen: WD/WN, NAD, sitting in bedside chair, A&Ox2 HEENT: Normocephalic, atraumatic, conjunctivae moist, sclerae anicteric, mucous membranes moist Lung: Clear to Auscultation bilaterally, no wheezes/rales/rhonchi Heart: Regular rate, regular rhythm, no murmurs, rubs, or gallops Abdomen: Soft, NT, ND +BS x 4 Extremities: no edema Skin: Warm, no rash Discharge Data Allergies Allergy/AdvReac Type Severity Reaction Status Date / Time No Known Allergies Allergy Verified 06/17/21 15:12 Hospital Course (1) Sepsis: (2) Pneumonia: (3) Acute metabolic encephalopathy: (4) Bacterial conjunctivitis of left eye: (5) Depression: (6) History of traumatic brain injury: (7) Parkinson's disease: (8) HTN (hypertension): This is a 75yo M who resides at [facility] with a PMH of TBI, recent diagnosis of Parkinson's, HTN, h/o alcohol abuse, MDD presented 06/17 with generalized weakness and 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 At presentation, patient was febrile at 38 C. Admission CXR showed hypoinflation with mild bibasilar densities suggestive of atelectasis versus pneumonitis. Was treated with IV Zosyn and later transitioned to Augmentin, which will be continued on discharge to finish course. Patient presented with acute metabolic encephalopathy in setting of infection that resolved. Back to mentation baseline of A&Ox2 in setting of TBI and Parkinson's disease. Also completed treatment course for bacterial conjunctivitis of left eye during admission with complete resolution. Patient to return to [facility] today with instructions to complete antibiotic course of Augmentin, continue flutter valve four times daily with assistance of [facility] staff and continue Mucinex twice daily as needed for congestion. Continue fall precautions at facility in setting of ongoing ambulatory dysfunction in setting of Parkinson's disease. Patient is asymptomatic and hemodynamically stable at time of discharge. Total Time Total Time Spent Total Time Spent (In Minutes): 35 Discharge Plan Discharge Items Patient Disposition: [facility] Reason For Visit: SEPSIS 2/2 PNA Discharge Diagnosis: Sepsis secondary to PNA Activity: Resume your previous activity Non-emergency contact: Primary Care Provider Call non-emergency contact if: you have any medication questions, your symptoms worsen and you have a fever Follow-up/Referrals: Pradeep Rodriguez, [Primary Care Provider] - (Date & Time 07/01/2021 11:00 AM Provider Pradeep Rodriguez, DO Department [facility] ) Diet: Heart Healthy Addtl Attending Provider Instructions: You were admitted for pneumonia. Complete 4 more days of Augmentin (antibiotic). Please assist patient with using flutter valve four times a day. Continue Mucinex twice daily as needed. During stay, patient was treated for infection of left eye. Has completed course of eye drops. Follow up appointment is scheduled with Dr. Rodriguez for 07/01/21 at 11:00am. OTHER INSTRUCTIONS: Seek medical attention if you have: * temperature above 101 * chest pain or trouble breathing * abdominal pain, nausea, vomiting * diarrhea, dark stools or bloody stools * any unanswered questions or concerns Call 911 if symptoms are severe. Please take good care of yourself. Call if you have any questions or problems. You can reach a [facility] hospitalist on duty at [facility] 24 hours a day by calling [phone]. Pending Studies at Discharge: No Stand-Alone Forms: My [facility] [employer], Smoking Cessation Skilled Items Patient informed of condition?: Yes DNR: No Discharge Level of Care: Other Communicable Disease: No Discharge Prognosis: Improving Lines: None Urinary Catheter: No Medications and DC Order Prescriptions: New amoxicillin-pot clavulanate [Augmentin] 875-125 mg tablet 1 tab PO BIDM 4 Days Qty: 9 RF: 0 Continued atorvastatin 20 mg Tablet 20 mg PO QAM Qty: 30 RF: 0 donepezil 10 mg tablet 10 mg PO QAM Qty: 30 RF: 0 furosemide [Lasix] 20 mg Tablet 20 mg PO QAM Qty: 30 RF: 0 polyethylene glycol 3350 [Miralax] 17 gram/dose Powder 17 g PO Q3D PRN (Reason: Constipation) Qty: 119 RF: 0 carbidopa-levodopa 25-100 mg tablet 1 tab PO TIDM Qty: 90 RF: 0 escitalopram oxalate [Lexapro] 20 mg Tablet 20 mg PO QAM Qty: 30 RF: 0 guaifenesin [Mucus Relief ER] 600 mg Tablet Extended Release 12hr 600 mg PO Q12H PRN (Reason: Congestion) Qty: 60 RF: 0 Discharge Orders: Discharge Order (Routine); Ordered 06/27/21 Ordered By: Anamaria Schreiber Admission Data Admit Date/Time: 06/17/21 17:58 Attending Provider: Barron Macdonald Admit Provider: Barron Macdonald Primary Care Provider: Pradeep Rodriguez [facility]: [facility] ; Ofelia Foster Other Interventions: Discharge Summary Assessment (RN) Last Done: 06/27/21 11:38 Supervising Physician Co-Signing Physician Notes Patient seen and examined by me, care coordinated with Anamaria Schreiber PA-C, please refer to her note above for further detail. Pt is sitting up in bed, breathing comfortably on RA, has occasional cough. On auscultation, no wheezing, crackles, and perhaps only minimal rhonchi noted. Cont. PO Augmentin, Mucinex and use flutter valve with assistance. Overall patient is doing well, has no complaints. Plan to discharge today. Cesar Macdonald MD
== END 2021-06-27 13:40 | disposition home or self-care (01) | DRG 871 ==
LOC: ED 13:57 → EDINP 17:58 → SUATTDRO 17:58 → EDINP 20:37 → 2S 06-18 18:25 → 3N 06-23 19:06